=== PATIENT | female | born 1980 | race Caucasian/White ===

== ENCOUNTER 2016-08-24 17:06 | Emergency (ER) | payer MEDICAID ==
[2016-08-24] MEDS ORDERED: ONDANSETRON 4 MG TAB.RAPDIS PO ONE (17:35)
--- NOTE | 2016-08-24 17:38 | ER Document Report ---
ED Medical Screen (RME) - General Chief Complaint: Nausea/Vomiting/Diarrhea Stated Complaint: VOMITING AND DIARRHEA Mode of Arrival: Ambulatory Information source: Patient Notes: Patient presents emergency department with vomiting diarrhea all day. Patient reports symptoms started this morning. Reports all her kids are sick at home. No flu vaccine this year I have greeted and performed a rapid initial assessment of this patient. A comprehensive ED assessment and evaluation of the patient, analysis of test results and completion of the medical decision making process will be conducted by additional ED providers. TRAVEL OUTSIDE OF THE [place] IN LAST 30 DAYS: No - Related Data Allergies/Adverse Reactions: Sulfa (Sulfonamide Antibiotics) Allergy (Mild, Verified 01/14/16 21:07) rash doxycycline Allergy (Verified 01/14/16 21:07) ketorolac tromethamine [From Toradol] Adverse Reaction (Mild, Verified 01/14/16 21:07) spiders Allergy (Severe, Uncoded 01/14/16 21:07) Seizures latex Allergy (Uncoded 01/14/16 21:07) Past Medical History - Social History Family history: Reviewed & Not Pertinent Pulmonary Medical History: Reports: Hx Asthma, Hx Bronchitis - Bronchitis with bronchospasm, Hx COPD Neurological Medical History: Reports: Hx Migraine Malignancy Medical History: Reports: Hx Skin Cancer Musculoskeltal Medical History: Reports Hx Musculoskeletal Deformity, Reports Hx Musculoskeletal Trauma Skin Medical History: Reports Hx Psoriasis Psychiatric Medical History: Reports: Hx Anxiety, Hx Depression Traumatic Medical History: Reports: Hx Fractures - hand Past Surgical History: Reports: Hx Section - x2, Hx Orthopedic Surgery - lt knee x 4, Hx Tubal Ligation - Immunizations Immunizations up to date: Yes Hx Diphtheria, Pertussis, Tetanus Vaccination: Yes - november 2014 Physical Exam - Vital signs Vitals: Temp Pulse Resp BP Pulse Ox 98.3 F 106 H 16 136/72 H 97 08/24/16 17:10 08/24/16 17:10 08/24/16 17:10 08/24/16 17:10 08/24/16 17:10 Course - Vital Signs Vital signs: Temp Pulse Resp BP Pulse Ox 98.3 F 106 H 16 136/72 H 97 08/24/16 17:10 08/24/16 17:10 08/24/16 17:10 08/24/16 17:10 08/24/16 17:10
[2016-08-24 20:19] LABS: ABSOLUTE EOSINOPHILS # (AUTO) 0.2 10^3/uL (0.0-0.6); ABSOLUTE LYMPHOCYTES (AUTO) 1.1 10^3/uL (0.5-4.7); ABSOLUTE MONOCYTES (AUTO) 0.5 10^3/uL (0.1-1.4); ABSOLUTE NEUT (AUTO) 10.8 10^3/uL (1.7-8.2); BASOPHILS % (AUTO) 0.3 % (0-2); EOSINOPHILS % (AUTO) 1.7 % (0-6); HEMATOCRIT 49.3 % (36.0-47.0); HEMOGLOBIN 16.9 g/dL (12.0-15.5); HGB HCT DIFFERENCE 1.4; LYMPHOCYTES % (AUTO) 8.4 % (13-45); MEAN CORPUSCULAR HEMOGLOBIN 30.3 pg (27.0-33.4); MEAN CORPUSCULAR HGB CONC 34.3 g/dL (32.0-36.0); MEAN CORPUSCULAR VOLUME 88 fl (80-97); RED BLOOD COUNT 5.58 10^6/uL (3.72-5.28); RED CELL DISTRIBUTION WIDTH 15.3 % (11.5-14.0); SEGMENTED NEUTROPHILS % (AUTO) 85.6 % (42-78); WHITE BLOOD COUNT 12.6 10^3/uL (4.0-10.5)
[2016-08-24 20:25] LABS: APPEARANCE,URINE CLOUDY; BILIRUBIN,URINE NEGATIVE (NEGATIVE); GLUCOSE, URINE NEGATIVE (NEGATIVE); KETONES,URINE NEGATIVE (NEGATIVE); LEUKOCYTE ESTERASE,URINE TRACE (NEGATIVE); NITRITE,URINE NEGATIVE (NEGATIVE); PROTEIN,URINE 100 mg/dL (NEGATIVE); URINE SPECIFIC GRAVITY 1.021; UROBILINOGEN,URINE NEGATIVE mg/dL (<2.0)
[2016-08-24 20:50] LABS: ALANINE AMINOTRANSFERASE 45 U/L (9-52); ALBUMIN 4.7 g/dL (3.5-5.0); ALKALINE PHOSPHATASE 85 U/L (38-126); ANION GAP 13 (5-19); ASPARTATE AMINO TRANSFERASE 30 U/L (14-36); BILIRUBIN,DIRECT 0.3 mg/dL (0.0-0.4); BILIRUBIN,TOTAL 0.9 mg/dL (0.2-1.3); BLOOD UREA NITROGEN 12 mg/dL (7-20); CALCIUM 9.9 mg/dL (8.4-10.2); CARBON DIOXIDE 25 mmol/L (22-30); CHLORIDE 104 mmol/L (98-107); CREATININE RESULT 0.77 mg/dL (0.52-1.25); GLUCOSE 93 mg/dL (75-110); POTASSIUM 4.5 mmol/L (3.6-5.0); SODIUM 141.7 mmol/L (137-145); TOTAL PROTEIN 7.9 g/dL (6.3-8.2)
[2016-08-24] MEDS ORDERED: FAMOTIDINE INJ/PF 20 MG/2 ML SDV IV ONE (21:16)
[2016-08-24] MEDS ORDERED: DIPHENHYDRAMINE HCL 50 MG/ML VIAL IV ONE (21:16)
--- NOTE | 2016-08-24 21:18 | ER Document Report ---
ED GI/ - General Time seen by provider: 21:12 Mode of Arrival: Ambulatory Information source: Patient TRAVEL OUTSIDE OF THE [place] IN LAST 30 DAYS: No - HPI Patient complains to provider of: Abdominal pain, Diarrhea, Vomiting Onset: This morning - see HPI note LMP: 08/24/16 Associated symptoms: Diarrhea, Nausea, Vomiting. denies: Fever <RADHA COHEN - Last Filed: 08/24/16 21:45> <LEANDRO ARGUELLES - Last Filed: 08/24/16 23:59> - General Chief Complaint: Nausea/Vomiting Stated Complaint: VOMITING AND DIARRHEA Notes: Patient is a 35 year old female presenting to the ED for nausea, vomiting, and diarrhea. Patient's symptoms started this morning. Patient has been around sick family members and sick children with the same symptoms. Patient also complains of some epigastric cramping. Patient denies any fevers. Patient has a history of asthma, depression and anxiety. Patient did not receive a flu vaccination this season. (RADHA COHEN) - Related Data Allergies/Adverse Reactions: Sulfa (Sulfonamide Antibiotics) Allergy (Mild, Verified 01/14/16 21:07) rash doxycycline Allergy (Verified 01/14/16 21:07) ketorolac tromethamine [From Toradol] Adverse Reaction (Mild, Verified 01/14/16 21:07) spiders Allergy (Severe, Uncoded 01/14/16 21:07) Seizures latex Allergy (Uncoded 01/14/16 21:07) Past Medical History - General Information source: Patient - Social History Smoking Status: Unknown if Ever Smoked Family History: Reviewed & Not Pertinent, CVA, DM Patient has suicidal ideation: No Patient has homicidal ideation: No Pulmonary Medical History: Reports: Hx Asthma, Hx Bronchitis - Bronchitis with bronchospasm, Hx COPD Neurological Medical History: Reports: Hx Migraine Malignancy Medical History: Reports: Hx Skin Cancer Musculoskeltal Medical History: Reports Hx Musculoskeletal Deformity, Reports Hx Musculoskeletal Trauma Skin Medical History: Reports Hx Psoriasis Psychiatric Medical History: Reports: Hx Anxiety, Hx Depression Traumatic Medical History: Reports: Hx Fractures - hand Past Surgical History: Reports: Hx Section - x2, Hx Orthopedic Surgery - lt knee x 4, Hx Tubal Ligation - Immunizations Immunizations up to date: Yes Hx Diphtheria, Pertussis, Tetanus Vaccination: Yes - november 2014 History of Influenza Vaccine for 02/2016 - 07/2016 Season: No <RADHA COHEN - Last Filed: 08/24/16 21:45> Review of Systems - Review of Systems Constitutional: No symptoms reported. denies: Fever EENT: No symptoms reported Cardiovascular: No symptoms reported Respiratory: No symptoms reported Gastrointestinal: See HPI, Abdominal pain, Diarrhea, Nausea, Vomiting Genitourinary: No symptoms reported Female Genitourinary: No symptoms reported Musculoskeletal: No symptoms reported Skin: No symptoms reported Hematologic/Lymphatic: No symptoms reported Neurological/Psychological: No symptoms reported -: Yes All other systems reviewed and negative <RADHA COHEN - Last Filed: 08/24/16 21:45> Physical Exam - Vital signs Interpretation: Normal - General General appearance: Appears well, Alert In distress: Mild - HEENT Head: Normocephalic, Atraumatic Eyes: Normal Pupils: PERRL Mucous membranes: Moist - Respiratory Respiratory status: No respiratory distress Chest status: Nontender Breath sounds: Normal Chest palpation: Normal - Cardiovascular Rhythm: Regular Heart sounds: Normal auscultation Murmur: No - Abdominal Inspection: Normal Distension: No distension Bowel sounds: Normal Tenderness: Nontender Organomegaly: No organomegaly - Back Back: Normal, Nontender - Extremities General upper extremity: Normal inspection, Normal ROM, Normal strength General lower extremity: Normal inspection, Normal ROM, Normal strength - Neurological Neuro grossly intact: Yes Cognition: Normal Orientation: AAOx4 [place] Coma Scale Eye Opening: Spontaneous [place] Coma Scale Verbal: Oriented [place] Coma Scale Motor: Obeys Commands [place] Coma Scale Total: 15 Speech: Normal Sensory: Normal - Psychological Associated symptoms: Normal affect, Normal mood - Skin Skin Temperature: Warm Skin Moisture: Dry <RADHA COHEN - Last Filed: 08/24/16 21:45> <LEANDRO ARGUELLES - Last Filed: 08/24/16 23:59> - Vital signs Vitals: Temp Pulse Resp BP Pulse Ox 98.3 F 106 H 16 136/72 H 97 08/24/16 17:10 08/24/16 17:10 08/24/16 17:10 08/24/16 17:10 08/24/16 17:10 Course - Laboratory Result Diagrams: 08/24/16 20:00 08/24/16 20:00 <RADHA COHEN - Last Filed: 08/24/16 21:45> - Laboratory Result Diagrams: 08/24/16 20:00 08/24/16 20:00 <LEANDRO ARGUELLES - Last Filed: 08/24/16 23:59> - Re-evaluation Re-evalutation: 08/24/16 23:57 The patient is now finishing her second liter of normal saline. There is been no diarrhea since I first saw her almost 3 hours ago. She'll be discharged home with anti-medic medication and to drink small sips cool clear fluids. The urine was quite contaminated with epithelial cells, and the blood is due to the patient being on her period. (LEANDRO ARGUELLES) - Vital Signs Vital signs: Temp Pulse Resp BP Pulse Ox 98.3 F 106 H 16 136/72 H 97 08/24/16 17:10 08/24/16 17:10 08/24/16 17:10 08/24/16 17:10 08/24/16 17:10 - Laboratory Laboratory results interpreted by me: 08/24/16 08/24/16 20:00 20:00 WBC 12.6 H RBC 5.58 H Hgb 16.9 H Hct 49.3 H RDW 15.3 H Seg Neutrophils % 85.6 H Lymphocytes % 8.4 L Absolute Neutrophils 10.8 H Urine Protein 100 H Urine Blood LARGE H Ur Leukocyte Esterase TRACE H Discharge <RADHA COHEN - Last Filed: 08/24/16 21:45> <LEANDRO ARGUELLES - Last Filed: 08/24/16 23:59> - Discharge Clinical Impression: Nausea, vomiting and diarrhea Condition: Stable Disposition: HOME, SELF-CARE Additional Instructions: Gastroenteritis: You most likely have gastroenteritis. This is an irritation of the stomach and intestinal tract. It's usually caused by a virus, but can also be caused by bacteria, toxins that cause food poisoning, or excessive alcohol intake. Symptoms may include fever, painful abdominal cramps, nausea, vomiting , and diarrhea. Start with small amounts (two to six ounces) of clear liquids (soft drinks , herb teas, broth, etc). Try to take fluids frequently even if you are vomiting, to prevent dehydration. When liquids are being consumed successfully , advance to small amounts of bland food (mashed potato, toast) for 6 - 12 hours. Gastroenteritis rarely requires medication. It goes away by itself. Use good handwashing so you don't spread germs. Wash underwear in very hot water. If symptoms are severe, talk to the doctor. Call your physician if blood appears in your vomitus or stool, if vomiting lasts longer than 24 hours, if the abdominal pain worsens or becomes localized to one area, or if you develop high fever. //////////////////////////////////////////////////////////////////////////////// ///////////////////////////////////////////////////////////////////////////// Take medications as dispensed and prescribed for nausea if needed. Drink small sips of cool clear liquids. Follow-up with your doctor if not improving. RETURN TO THE EMERGENCY ROOM IF ANY NEW OR WORSENING SYMPTOMS. Prescriptions: Ondansetron HCl [Zofran 4 mg Tablet] 1 - 2 tab PO Q4H PRN #15 tablet PRN Reason: Scribe Attestation: 08/24/16 23:59 I personally performed the services described in the documentation, reviewed and edited the documentation which was dictated to the scribe in my presence, and it accurately records my words and actions. (LEANDRO ARGUELLES) Scribe Documentation - Scribe Written by Candace:: Radha Cohen 08/24/16 21:50 acting as scribe for :: Dean <RADHA COHEN - Last Filed: 08/24/16 21:45>
[2016-08-24] MEDS: NORMAL SALINE 1000 ML 1,000 ML IV PRN ×2 (21:51→23:22)
[2016-08-24] MEDS ORDERED: ONDANSETRON HCL INJ/PF 4 MG/2 ML SDV IV ONE (23:11)
[2016-08-25] MEDS ORDERED: ONDANSETRON ODT 4 MG TAB (6 TAB/DSPK) PO PRN (00:01)
[2016-08-25 00:16] VITALS: BP 130/66
== END 2016-08-25 00:15 | disposition home or self-care (01) ==
LOC: ER 17:06
DX: R11.2 Nausea with vomiting, unspecified (principal); R19.7 Diarrhea, unspecified; R10.13 Epigastric pain; J44.9 Chronic obstructive pulmonary disease, unspecified; Z88.2 Allergy status to sulfonamides; Z88.1 Allergy status to other antibiotic agents; Z91.038 Other insect allergy status; Z91.040 Latex allergy status; Z98.51 Tubal ligation status
CPT/HCPCS: 99284; 96374; 96375; 36415; 84703; 85025; 80053; 81001; 87804; J1200; S0119; J2405; J7030; S0028

== ENCOUNTER 2016-11-06 13:12 | Emergency (ER) | payer MEDICAID ==
[2016-11-06 13:19] VITALS: BP 150/78
--- NOTE | 2016-11-06 13:44 | ER Document Report ---
ED Medical Screen (RME) - General Chief Complaint: Shortness Of Breath Stated Complaint: SHORTNESS OF BREATH Time Seen by Provider: 11/06/16 13:36 Notes: 35-year-old female patient on chronic headache pain management reports 2 week history of cough, short of breath, headache, body aches, hoarseness. She states she was diagnosed with bronchitis, sinus infection, ear infection 1 week ago, got shot of Rocephin in the office on Wednesday, was given a prescription for antibiotic she is allergic to. She did not go back to be seen and claims she has not gotten any better. She reports calling the office today and neither of her providers were in and she was told to come to the emergency room today or the office on Wednesday. I have greeted and performed a rapid initial assessment of this patient. A comprehensive ED assessment and evaluation of the patient, analysis of test results and completion of the medical decision making process will be conducted by additional ED providers. TRAVEL OUTSIDE OF THE [place] IN LAST 30 DAYS: No - Related Data Allergies/Adverse Reactions: Sulfa (Sulfonamide Antibiotics) Allergy (Mild, Verified 11/06/16 13:15) rash doxycycline Allergy (Verified 11/06/16 13:15) ketorolac tromethamine [From Toradol] Adverse Reaction (Mild, Verified 11/06/16 13:15) spiders Allergy (Severe, Uncoded 11/06/16 13:15) Seizures latex Allergy (Uncoded 11/06/16 13:15) Past Medical History - Social History Chew tobacco use (# tins/day): No Frequency of alcohol use: None Drug Abuse: None Family history: Reviewed & Not Pertinent Pulmonary Medical History: Reports: Hx Asthma, Hx Bronchitis - Bronchitis with bronchospasm, Hx COPD Neurological Medical History: Reports: Hx Migraine Renal/ Medical History: Denies: Hx Peritoneal Dialysis Malignancy Medical History: Reports: Hx Skin Cancer Musculoskeltal Medical History: Reports Hx Musculoskeletal Deformity, Reports Hx Musculoskeletal Trauma Skin Medical History: Reports Hx Psoriasis Psychiatric Medical History: Reports: Hx Anxiety, Hx Depression Traumatic Medical History: Reports: Hx Fractures - hand Past Surgical History: Reports: Hx Section - x2, Hx Orthopedic Surgery - lt knee x 4, Hx Tubal Ligation - Immunizations Immunizations up to date: Yes Hx Diphtheria, Pertussis, Tetanus Vaccination: Yes - november 2014 Physical Exam - Vital signs Vitals: Temp Pulse Resp BP Pulse Ox 98.2 F 108 H 20 150/78 H 97 11/06/16 13:16 11/06/16 13:16 11/06/16 13:16 11/06/16 13:16 11/06/16 13:16 Course - Vital Signs Vital signs: Temp Pulse Resp BP Pulse Ox 98.2 F 108 H 20 150/78 H 97 11/06/16 13:16 11/06/16 13:16 11/06/16 13:16 11/06/16 13:16 11/06/16 13:16
[2016-11-06] MEDS ORDERED: IBUPROFEN 800 MG TABLET PO ONE (14:21)
--- NOTE | 2016-11-06 14:27 | RADIOLOGY REPORT (SQ) ---
EXAM DESCRIPTION: CHEST PA/LAT COMPLETED DATE/TIME: 11/06/2016 2:11 pm REASON FOR STUDY: cough, SOB, hoarse COMPARISON: July 2015 EXAM PARAMETERS: NUMBER OF VIEWS: two views TECHNIQUE: Digital Frontal and Lateral radiographic views of the chest acquired. RADIATION DOSE: NA LIMITATIONS: none FINDINGS: LUNGS AND PLEURA: No opacities, masses or pneumothorax. No pleural effusion. MEDIASTINUM AND HILAR STRUCTURES: No masses or contour abnormalities. HEART AND VASCULAR STRUCTURES: Heart normal size. No evidence for failure. BONES: No acute findings. HARDWARE: None in the chest. OTHER: No other significant finding. IMPRESSION: NO SIGNIFICANT RADIOGRAPHIC FINDING IN THE CHEST. TECHNICAL DOCUMENTATION: JOB ID: [id number] [employer]- All Rights Reserved
--- NOTE | 2016-11-06 14:39 | ER Document Report ---
ED Respiratory Problem - General Chief Complaint: Shortness Of Breath Stated Complaint: SHORTNESS OF BREATH Time Seen by Provider: 11/06/16 13:36 Mode of Arrival: Ambulatory Information source: Patient Notes: 35-year-old female presents to ED for chronic headache. History of a cough for 2 weeks. She states she has been short of breath but body aches and hoarseness. She states she was diagnosed with bronchitis, sinus infection and ear infection a week ago. States she had a shot of Rocephin in the office on Wednesday and was given a prescription for antibiotics that she was allergic to so she did not take them and did not go back to the office. States she has not gotten any better. States she called the office today and neither of her providers or and so she was told to come to the emergency room. TRAVEL OUTSIDE OF THE [place] IN LAST 30 DAYS: No - HPI Onset: Last week Duration: Continuous Initiating Event: URI Quality of pain: Achy Severity: Moderate Pain Level: 4 Context: Smoker Short of Breath: Mild Cough: Nonproductive Sputum amount: None Associated symptoms: Congestion, Cough, PND, Runny nose, Sinus pain/pressure, Short of breath, Sore Throat. denies: Fever Similar symptoms previously: Yes Recently seen / treated by doctor: Yes - Related Data Allergies/Adverse Reactions: Sulfa (Sulfonamide Antibiotics) Allergy (Mild, Verified 11/06/16 13:15) rash doxycycline Allergy (Verified 11/06/16 13:15) ketorolac tromethamine [From Toradol] Adverse Reaction (Mild, Verified 11/06/16 13:15) spiders Allergy (Severe, Uncoded 11/06/16 13:15) Seizures latex Allergy (Uncoded 11/06/16 13:15) Past Medical History - General Information source: Patient - Social History Smoking Status: Current Every Day Smoker Cigarette use (# per day): Yes - ppd Chew tobacco use (# tins/day): No Smoking Education Provided: Yes - Less than 2 minutes Frequency of alcohol use: None Drug Abuse: None Lives with: Family Family History: Arthritis, CAD, COPD, CVA, DM, Hyperlipidemia, Hypertension, Malignancy. denies: Thyroid Disfunction Patient has suicidal ideation: No Patient has homicidal ideation: No - Past Medical History Cardiac Medical History: Reports: None Pulmonary Medical History: Reports: Hx Asthma, Hx Bronchitis - Bronchitis with bronchospasm, Hx COPD EENT Medical History: Reports: None Neurological Medical History: Reports: Hx Migraine Endocrine Medical History: Reports: None Renal/ Medical History: Reports: None Malignancy Medical History: Reports: Hx Skin Cancer GI Medical History: Reports: None Musculoskeltal Medical History: Reports Hx Musculoskeletal Deformity, Reports Hx Musculoskeletal Trauma Skin Medical History: Reports Hx Psoriasis Psychiatric Medical History: Reports: Hx Anxiety, Hx Depression Traumatic Medical History: Reports: Hx Fractures - hand Infectious Medical History: Reports: None Past Surgical History: Reports: Hx Section - x2, Hx Orthopedic Surgery - lt knee x 4, Hx Tubal Ligation - Immunizations Immunizations up to date: Yes Hx Diphtheria, Pertussis, Tetanus Vaccination: Yes - november 2014 Review of Systems - Review of Systems Constitutional: Recent illness EENT: Nose discharge, Sinus pressure, Sinus discharge, Throat pain Cardiovascular: No symptoms reported Respiratory: Cough, Short of breath Gastrointestinal: No symptoms reported Genitourinary: No symptoms reported Female Genitourinary: No symptoms reported Musculoskeletal: No symptoms reported Skin: No symptoms reported Hematologic/Lymphatic: No symptoms reported Neurological/Psychological: Headaches -: Yes All other systems reviewed and negative Physical Exam - Vital signs Vitals: Temp Pulse Resp BP Pulse Ox 98.2 F 108 H 20 150/78 H 97 11/06/16 13:16 11/06/16 13:16 11/06/16 13:16 11/06/16 13:16 11/06/16 13:16 Interpretation: Normal - General General appearance: Appears well, Alert - HEENT Head: Normocephalic, Atraumatic Eyes: Normal Pupils: PERRL Ears: Normal External canal: Normal Tympanic membrane: Normal Sinus: Normal Nasal: Purulent discharge, Swelling Mouth/Lips: Normal Pharynx: Post nasal drainage Neck: Normal - Respiratory Respiratory status: No respiratory distress. No: Respiratory distress Chest status: Nontender. No: Tender Breath sounds: Nonproductive cough. No: Rales, Rhonchi, Stridor, Wheezing Chest palpation: Normal - Cardiovascular Rhythm: Regular Heart sounds: Normal auscultation Murmur: No - Abdominal Inspection: Normal Distension: No distension Bowel sounds: Normal Tenderness: Nontender Organomegaly: No organomegaly - Back Back: Normal, Nontender - Extremities General upper extremity: Normal inspection, Nontender, Normal color, Normal ROM , Normal temperature General lower extremity: Normal inspection, Nontender, Normal color, Normal ROM , Normal temperature, Normal weight bearing. No: Aldo's sign - Neurological Neuro grossly intact: Yes Cognition: Normal Orientation: AAOx4 [place] Coma Scale Eye Opening: Spontaneous [place] Coma Scale Verbal: Oriented [place] Coma Scale Motor: Obeys Commands [place] Coma Scale Total: 15 Speech: Normal Motor strength normal: LUE, RUE, LLE, RLE Sensory: Normal - Psychological Associated symptoms: Normal affect, Normal mood - Skin Skin Temperature: Warm Skin Moisture: Dry Skin Color: Normal Course - Re-evaluation Re-evalutation: 11/06/16 22:16 Discussed x-ray with patient and discharged home to follow-up with her primary doctor. Patient has taken her medications except for the antibiotic that she refused to get. She does not have a bacterial infection she has a upper respiratory infection and does not need antibiotics. - Vital Signs Vital signs: Temp Pulse Resp BP Pulse Ox 98.2 F 108 H 20 150/78 H 97 11/06/16 13:16 11/06/16 13:16 11/06/16 13:16 11/06/16 13:16 11/06/16 13:16 - Diagnostic Test Radiology reviewed: Image reviewed, Reports reviewed Discharge - Discharge Clinical Impression: URI (upper respiratory infection) Qualifiers: URI type: unspecified URI Qualified Code(s): J06.9 - Acute upper respiratory infection, unspecified Condition: Stable Disposition: HOME, SELF-CARE Instructions: Family Physicians / Practices Additional Instructions: UPPER RESPIRATORY ILLNESS: You have a viral infection of the respiratory passages -- a "cold." This common infection causes nasal congestion, drainage, and often sore throat and cough. It is highly contagious. The disease usually lasts about 10 to 14 days. There is no "cure" for the viral infection -- it must run its course. If there is a complication, such as bacterial infection in the nose, sinuses, middle ear, or bronchial tubes, antibiotics may be required. The antibiotics won't affect the virus. Drink plenty of fluids. A humidifier may help. An expectorant medication or decongestant may make you more comfortable. Use acetaminophen or ibuprofen for fever or aches. See the doctor if fever persists over two days, if there is any significant worsening of your symptoms, or if you simply fail to improve as expected. DECONGESTANT MEDICATION: A decongestant medicine has been prescribed. Often this medicine is combined in the same tablet with an antihistamine or expectorant. This type of medicine is helpful in treating a bad cold or sinus condition, as well as in treatment of the nasal congestion of hay fever. It is not of much benefit for lung infections. Decongestant medicines are related to stimulants. They can cause an increase in blood pressure and heart rate. Persons with heart disease and high blood pressure should not take decongestants without discussing this with the physician. If you develop palpitations, chest pain, headache, or tremors, stop the medicine and consult your physician. COUGH-SUPPRESSANT & EXPECTORANT MEDICATION: You are to use a cough medication as needed for relief of symptoms. This medicine is a combination of an expectorant (to make the mucous thinner and more easily "coughed up") and a cough suppressant (to reduce the frequency of coughing). The cough-suppressant medicine is related to narcotics. You may experience mild nausea and sleepiness. Some patients who are very sensitive to narcotics may have stomach pain from this medicine. Taking the medicine with food reduces these side effects. Do not drive or work with machinery until you know how this medicine affects you. The expectorant should have no side effects. Iodine-containing expectorants (such as organidin) should not be taken by persons with active thyroid disease unless approved by your doctor. Call the doctor if you develop shortness of breath, hives, rash, itching, lightheadedness, or severe nausea and vomiting. USE OF ACETAMINOPHEN (Tylenol): Acetaminophen may be taken for pain relief or fever control. It's much safer than aspirin, offering a wider range of "safe" dosages. It is safe during . Some brand names are Tylenol, Panadol, Datril, Anacin 3, Tempra, and Liquiprin. Acetaminophen can be repeated every four hours. The following are maximum recommended dosages: >89 pounds or adults 650 mg to 900 mg Acetaminophen can be repeated every four hours. Maximum dose not to exceed 4000 mg a day. SMOKING: If you smoke, you should stop smoking. The tar and chemicals in cigarette smoke are harmful. Smoking has been shown to cause: emphysema chronic bronchitis lung cancer mouth and throat cancer stomach and pancreas cancer premature aging defects In addition, smoking increases ear and lung infections in children of smokers. FOLLOW-UP CARE: If you have been referred to a physician for follow-up care, call the physician s office for an appointment as you were instructed or within the next two days. If you experience worsening or a significant change in your symptoms, notify the physician immediately or return to the Emergency Department at any time for re-evaluation. Forms: Elevated Blood Pressure, Smoking Cessation Education, Return to Work
== END 2016-11-06 15:29 | disposition home or self-care (01) ==
LOC: ER 13:12
DX: J06.9 Acute upper respiratory infection, unspecified (principal); R06.02 Shortness of breath; R51 Headache; R05 Cough; R52 Pain, unspecified; R49.0 Dysphonia; F17.210 Nicotine dependence, cigarettes, uncomplicated
CPT/HCPCS: 99283; 71020; J3490

== ENCOUNTER 2017-01-16 18:40 | Emergency (ER) | payer MEDICAID ==
[2017-01-16 18:44] VITALS: BP 132/92
[2017-01-16] MEDS ORDERED: IBUPROFEN 800 MG TABLET PO ONE (19:35)
--- NOTE | 2017-01-16 19:40 | ER Document Report ---
ED Fall - General Chief Complaint: Fall Stated Complaint: FALL/BACK PAIN Time Seen by Provider: 01/16/17 19:27 Mode of Arrival: Ambulatory Information source: Patient Notes: 36-year-old female presents to ED for complaint of fall. She states she was walking out of her door when she stepped on the wet ramp. She states the landlord refused to fix the ramp. States she has pain in her left foot and ankle. She also had pain in her left arm back and head but she states they are not as bad as her left foot and ankle. Patient speaking in clear sentences no obvious edema or bruising to any of the areas she is complaining of pain in. TRAVEL OUTSIDE OF THE [place] IN LAST 30 DAYS: No - HPI Occurred: Just prior to arrival Where: Home, Outdoors Context: Slipped Associated symptoms: None Location of injury/pain: Ankle, Back, Foot, Head, Upper extremity Quality of pain: Sharp, Throbbing Severity: Moderate Pain Level: 4 - Related data Allergies/Adverse Reactions: Sulfa (Sulfonamide Antibiotics) Allergy (Mild, Verified 11/06/16 13:15) rash doxycycline Allergy (Verified 11/06/16 13:15) ketorolac tromethamine [From Toradol] Adverse Reaction (Mild, Verified 11/06/16 13:15) spiders Allergy (Severe, Uncoded 11/06/16 13:15) Seizures latex Allergy (Uncoded 11/06/16 13:15) Past Medical History - General Information source: Patient - Social History Smoking Status: Current Every Day Smoker Cigarette use (# per day): Yes - ppd Chew tobacco use (# tins/day): No Smoking Education Provided: Yes - less than 2 min Frequency of alcohol use: None Drug Abuse: None Lives with: Family Family History: Arthritis, CAD, COPD, CVA, DM, Hyperlipidemia, Hypertension, Malignancy. denies: Thyroid Disfunction - Past Medical History Cardiac Medical History: Reports: None Pulmonary Medical History: Reports: Hx Asthma, Hx Bronchitis - Bronchitis with bronchospasm, Hx COPD EENT Medical History: Reports: None Neurological Medical History: Reports: Hx Migraine Endocrine Medical History: Reports: None Renal/ Medical History: Reports: None Malignancy Medical History: Reports: Hx Skin Cancer GI Medical History: Reports: None Musculoskeltal Medical History: Reports Hx Musculoskeletal Deformity, Reports Hx Musculoskeletal Trauma Skin Medical History: Reports Hx Psoriasis Psychiatric Medical History: Reports: Hx Anxiety, Hx Depression Traumatic Medical History: Reports: Hx Fractures - hand Infectious Medical History: Reports: None Past Surgical History: Reports: Hx Section - x2, Hx Orthopedic Surgery - lt knee x 4, Hx Tubal Ligation - Immunizations Immunizations up to date: Yes Hx Diphtheria, Pertussis, Tetanus Vaccination: Yes - november 2014 Review of Systems - Review of Systems Constitutional: No symptoms reported EENT: No symptoms reported Cardiovascular: No symptoms reported Respiratory: No symptoms reported Gastrointestinal: No symptoms reported Genitourinary: No symptoms reported Female Genitourinary: No symptoms reported Musculoskeletal: Back pain, Other - Left ankle, foot pain, left arm pain, back pain and head pain Skin: No symptoms reported. denies: Change in color Hematologic/Lymphatic: No symptoms reported Neurological/Psychological: No symptoms reported -: Yes All other systems reviewed and negative Physical Exam - Vital signs Vitals: Temp Pulse Resp BP Pulse Ox 98.5 F 73 18 132/92 H 97 01/16/17 18:41 01/16/17 18:41 01/16/17 18:41 01/16/17 18:41 01/16/17 18:41 Interpretation: Normal - General General appearance: Appears well, Alert - HEENT Head: Normocephalic, Atraumatic Eyes: Normal Pupils: PERRL - Respiratory Respiratory status: No respiratory distress Chest status: Nontender Breath sounds: Normal Chest palpation: Normal - Cardiovascular Rhythm: Regular Heart sounds: Normal auscultation Murmur: No - Abdominal Inspection: Normal Distension: No distension Bowel sounds: Normal Tenderness: Nontender Organomegaly: No organomegaly - Back Back: Normal, Nontender - Extremities General upper extremity: Normal inspection, Nontender, Normal color, Normal ROM , Normal temperature General lower extremity: Normal inspection, Normal color, Normal ROM, Normal temperature, Normal weight bearing. No: Aldo's sign Ankle: Tender Foot: Tender - Neurological Neuro grossly intact: Yes Cognition: Normal Orientation: AAOx4 [place] Coma Scale Eye Opening: Spontaneous Lisandra Coma Scale Verbal: Oriented Lisandra Coma Scale Motor: Obeys Commands [place] Coma Scale Total: 15 Speech: Normal Motor strength normal: LUE, RUE, LLE, RLE Sensory: Normal - Psychological Associated symptoms: Normal affect, Normal mood - Skin Skin Temperature: Warm Skin Moisture: Dry Skin Color: Normal Course - Re-evaluation Re-evalutation: 01/16/17 20:33 X-rays discussed with patient. Written reports given to patient to follow-up with her primary doctor. There are no broken bones no acute radiological changes. Patient to use ibuprofen for her pain elevated and ice the injuries. - Vital Signs Vital signs: Temp Pulse Resp BP Pulse Ox 98.5 F 73 18 132/92 H 97 01/16/17 18:41 01/16/17 18:41 01/16/17 18:41 01/16/17 18:41 01/16/17 18:41 - Diagnostic Test Radiology reviewed: Image reviewed, Reports reviewed Discharge - Discharge Clinical Impression: Multiple contusions Fall Qualifiers: Encounter type: initial encounter Qualified Code(s): W19.XXXA - Unspecified fall, initial encounter Abrasion of left arm Qualifiers: Encounter type: initial encounter Qualified Code(s): S40.812A - Abrasion of left upper arm, initial encounter Left ankle pain Qualifiers: Chronicity: acute Qualified Code(s): M25.572 - Pain in left ankle and joints of left foot Condition: Stable Disposition: HOME, SELF-CARE Additional Instructions: CONTUSION: Your injury has resulted in a contusion -- a crushing of the deep tissues. No injury to important structures was detected during the physician's exam. Contusions vary in the amount of pain they cause, and in the length of time required for healing. Typically, the area will become bruised, and will remain painful to touch for two or three weeks. However, most patients are back to working and playing within a few days. After the initial period of rest and cold-packs, your symptoms (together with the doctor's recommendations) will determine how rapidly you can get back to full activity. Usually this means "do what feels okay, but don't do things that hurt." If re-examination was recommended, it's important to follow up as instructed. Call the doctor or return any time if pain increases, if swelling becomes severe, if you develop numbness or weakness in an injured extremity, or if any other alarming symptoms occur. ABRASIONS: An abrasion is a scraping injury of the skin. Some scarring may result. The seriousness of an abrasion is not always obvious at first. Hidden tissue damage may be present and infection may occur despite proper care. Complete healing may take from ten days to as long as a month. The healing time depends on the depth of the abrasion, and on the amount of crushing of underlying tissues from the injury. Keep the wound and dressing clean. Do not shower or bathe the area until okayed by the doctor. If the dressing gets wet, remove it and blot the wound dry, then reapply a clean dressing. Dressings should be changed every day. Sunscreen should be used for six months after the skin is healed. If any signs of infection occur (swelling, redness, increasing tenderness, red streaks, profuse purulent drainage from the abrasion, tender lumps in the armpit or groin above the abrasion, or fever), see the doctor immediately. USE OF TYLENOL (ACETAMINOPHEN): Acetaminophen may be taken for pain relief or fever control. It's much safer than aspirin, offering a wider range of "safe" dosages. It is safe during . Some brand names are Tylenol, Panadol, Datril, Anacin 3, Tempra, and Liquiprin. Acetaminophen can be repeated every four hours. The following are maximum recommended dosages: WEIGHT Dose Drops Elixir Chewable( 80mg) (LBS.) drprs=droppers tsp=teaspoon 6 40 mg 0.4 ml (1/2) 6-11 80 mg 0.8 ml (full) tsp 1 tab 12-16 120 mg 1 1/2 drprs 3/4 tsp 1 1/2 tabs 17-23 160 mg 2 drprs 1 tsp 2 tabs 24-30 240 mg 3 drprs 1 1/2 tsp 3 tabs 30-35 320 mg 2 tsp 4 tabs 36-41 360 mg 2 1/4 tsp 4 1/2 tabs 42-47 400 mg 2 1/2 tsp 5 tabs 48-53 480 mg 3 tsp 6 tabs 54-59 520 mg 3 1/4 tsp 6 1/2 tabs 60-64 560 mg 3 1/2 tsp 7 tabs 65-70 600 mg 3 3/4 tsp 7 1/2 tabs 71-76 640 mg 4 tsp 8 tabs 77-82 720 mg 4 1/2 tsp 9 tabs 83-88 800 mg 5 tsp 10 tabs >89 pounds or adults 650 mg to 900 mg Acetaminophen can be repeated every four hours. Maximum dose not to exceed 4000 mg a day. These maximum recommended dosages are slightly higher than the dosages written on the product container, but these dosages are very safe and below the toxic dosage for acetaminophen. TETANUS IMMUNIZATION GIVEN: You have been given an immunization against tetanus. Please record this in your records. In general, a booster is needed only once every 10 years. The tetanus shot protects against tetanus or "lockjaw," which is a complication of certain wound infections (the tetanus shot cannot protect against the actual infection). The immunization site may become warm and red due to local reaction. If this occurs, apply warm compresses and take aspirin or ibuprofen to reduce inflammation and discomfort. Return for evaluation if the reaction becomes severe. ICE PACKS: Apply ice packs frequently against the painful area. Many different schedules are recommended, such as "20 minutes on, 20 minutes off" or "one hour ice, two hours rest." If you need to work, you may need to go longer between ice treatments. You should plan to have the area ice packed AT LEAST one fourth of the time. The ice should be applied over the wrap, tape, or splint, or over a layer of cloth -- not directly against the skin. Some ice bags have a built-in cloth and can be put directly on the skin. WARM PACKS: After approximately two days, apply gentle heat (such as a heating pad or hot water bottle) for about 20 to 30 minutes about every two hours -- at least four times daily. Warmth and elevation will help you make a more rapid recovery , and will ease the pain considerably. Do not use HOT heat, and never apply heat for longer than 30 minutes. The continuous heat can invisibly damage skin and muscles -- even when no burn is seen on the surface. Damaged muscles can make you MORE sore. FOLLOW-UP CARE: If you have been referred to a physician for follow-up care, call the physician s office for an appointment as you were instructed or within the next two days. If you experience worsening or a significant change in your symptoms, notify the physician immediately or return to the Emergency Department at any time for re-evaluation. Prescriptions: Ibuprofen 600 mg PO Q6HP PRN #20 tablet PRN Reason: Forms: Elevated Blood Pressure, Smoking Cessation Education Referrals: SHAYNE CHÁVEZ MD [Primary Care Provider] - Follow up as needed
[2017-01-16] MEDS ORDERED: DIPH/PERTUSS(ACELL)/TETANUS VAC/PF 0.5 ML SYR (>=10YO) IM ONE (20:17)
--- NOTE | 2017-01-16 20:17 | RADIOLOGY REPORT (SQ) ---
EXAM DESCRIPTION: FOOT LEFT COMPLETE COMPLETED DATE/TIME: 01/16/2017 8:06 pm REASON FOR STUDY: pain and injury COMPARISON: None. NUMBER OF VIEWS: Three views. TECHNIQUE: AP, lateral and oblique radiographic images acquired of the left foot. LIMITATIONS: None. FINDINGS: MINERALIZATION: Normal. BONES: No acute fracture or dislocation. No worrisome bone lesions. JOINTS: Mild bony spurring at the 1st and 2nd tarsometatarsal joints. SOFT TISSUES: No soft tissue swelling. No foreign body. OTHER: No other significant finding. IMPRESSION: NEGATIVE STUDY OF THE LEFT FOOT. NO RADIOGRAPHIC EVIDENCE OF ACUTE INJURY. TECHNICAL DOCUMENTATION: JOB ID: [id number] [employer]- All Rights Reserved
--- NOTE | 2017-01-16 20:18 | RADIOLOGY REPORT (SQ) ---
EXAM DESCRIPTION: ANKLE LEFT COMPLETE COMPLETED DATE/TIME: 01/16/2017 8:06 pm REASON FOR STUDY: pain and injury COMPARISON: Left foot films same date NUMBER OF VIEWS: Three views. TECHNIQUE: AP, lateral, and oblique radiographic images acquired of the left ankle. LIMITATIONS: None. FINDINGS: MINERALIZATION: Normal. BONES: No acute fracture or dislocation. No worrisome bone lesions. JOINTS: No effusions. SOFT TISSUES: No soft tissue swelling. No foreign body. OTHER: No other significant finding. IMPRESSION: NEGATIVE STUDY OF THE LEFT ANKLE. NO RADIOGRAPHIC EVIDENCE OF ACUTE INJURY. TECHNICAL DOCUMENTATION: JOB ID: [id number] [email or web address]- All Rights Reserved
== END 2017-01-16 20:45 | disposition home or self-care (01) ==
LOC: ER 18:40
DX: S40.812A Abrasion of left upper arm, initial encounter (principal); W19.XXXA Unspecified fall, initial encounter; F17.210 Nicotine dependence, cigarettes, uncomplicated
CPT/HCPCS: 99283; 90471; 73610; 73630; 90715; J3490

== ENCOUNTER → 2017-02-27 | Outpatient (CLI) | payer MEDICAID ==
--- NOTE | 2017-02-27 08:16 | RADIOLOGY REPORT (SQ) ---
EXAM DESCRIPTION: CT HEAD WITHOUT COMPLETED DATE/TIME: 02/27/2017 8:01 am REASON FOR STUDY: CLOSED HEAD INJURY S09.90XA UNSPECIFIED INJURY OF HEAD, INITIAL ENCOUNTER COMPARISON: 10/31/2010 CT brain TECHNIQUE: Axial images acquired through the brain without intravenous contrast. Images reviewed wi th bone, brain and subdural windows. Images stored on PACS. All CT scanners at this facility use dose modulation, iterative reconstruction, and/or weight based d osing when appropriate to reduce radiation dose to as low as reasonably achievable (ALARA). [facility]: Dose Right [facility]: CareDose [facility]: Dose Right [facility]: Teradose 4D [facility]: [employer] RADIATION DOSE: Up-to-date CT equipment and radiation dose reduction techniques were employed. CTDIv ol: 64.6 mGy. DLP: 1163 mGy-cm. mGy. LIMITATIONS: None. FINDINGS: VENTRICLES: Normal size and contour. CEREBRUM: No masses. No hemorrhage. No midline shift. No evidence for acute infarction. Normal gra y/white matter differentiation. No areas of low density in the white matter. CEREBELLUM: No masses. No hemorrhage. No alteration of density. No evidence for acute infarction. EXTRAAXIAL SPACES: No fluid collections. No masses. ORBITS AND GLOBE: No intra- or extraconal masses. Normal contour of globe without masses. CALVARIUM: No fracture. PARANASAL SINUSES: No fluid or mucosal thickening. SOFT TISSUES: No mass or hematoma. OTHER: No other significant finding. IMPRESSION: NORMAL BRAIN CT WITHOUT CONTRAST. EVIDENCE OF ACUTE STROKE: NO. COMMENT: Quality ID # [id number]: Final reports with documentation of one or more dose reduction techniques (e.g., Automated exposure control, adjustment of the mA and/or kV according to patient size, use of iterative reconstruction technique) TECHNICAL DOCUMENTATION: JOB ID: [id number] [employer]- All Rights Reserved
== END ==
LOC: RAD 07:43
PROVIDERS: ATTEND Family Medicine
DX: S09.90XA Unspecified injury of head, initial encounter (principal); X58.XXXA Exposure to other specified factors, initial encounter
CPT/HCPCS: 70450

== ENCOUNTER 2017-07-21 10:09 | Emergency (ER) | payer MEDICAID ==
[2017-07-21] MEDS ORDERED: ACETAMINOPHEN 325 MG TABLET PO ONE (11:27)
[2017-07-21] MEDS ORDERED: PREDNISONE 20 MG TABLET PO ONE (11:27)
[2017-07-21] MEDS ORDERED: ONDANSETRON 4 MG TAB.RAPDIS PO ONE (11:27)
[2017-07-21] MEDS ORDERED: IPRATROPIUM/ALBUTEROL 0.5-2.5 MG/3 ML AMPUL NEB ONE (11:27)
--- NOTE | 2017-07-21 11:27 | ER Document Report ---
HPI - HPI Onset/Duration: Gradual Quality of pain: Achy Pain Level: 1 Context: Patient presents with cough for the past 3 days. Patient does report recent influenza exposure. Patient complains of nausea, sore throat. Patient denies any fever. Associated Symptoms: Nonproductive cough, Nausea, Sore throat. denies: Fever, Headache, Vomiting Exacerbated by: Denies Relieved by: Denies Similar symptoms previously: Yes Recently seen / treated by doctor: No - ROS ROS below otherwise negative: Yes Systems Reviewed and Negative: Yes All other systems reviewed and negative - CONSTITUTIONAL Constitutional: DENIES: Fever - EENT EENT: REPORTS: Sore Throat, Congestion - RESPIRATORY Respiratory: REPORTS: Coughing. DENIES: Trouble Breathing - GASTROINTESTINAL Gastrointestinal: REPORTS: Nausea. DENIES: Abdominal Pain, Patient vomiting, Diarrhea - REPRODUCTIVE Reproductive: DENIES: : - MUSCULOSKELETAL Musculoskeletal: DENIES: Back Pain, Neck Pain - DERM Skin Color: Normal Skin Problems: None Past Medical History - General Information source: Patient - Social History Smoking Status: Current Every Day Smoker Smoking Education Provided: Yes Frequency of alcohol use: None Drug Abuse: None Occupation: None Family History: Arthritis, CAD, COPD, CVA, DM, Hyperlipidemia, Hypertension, Malignancy. denies: Thyroid Disfunction Pulmonary Medical History: Reports: Hx Asthma, Hx Bronchitis - Bronchitis with bronchospasm, Hx COPD Neurological Medical History: Reports: Hx Migraine Renal/ Medical History: Denies: Hx Peritoneal Dialysis Malignancy Medical History: Reports: Hx Skin Cancer Musculoskeltal Medical History: Reports Hx Musculoskeletal Deformity, Reports Hx Musculoskeletal Trauma Skin Medical History: Reports Hx Psoriasis Psychiatric Medical History: Reports: Hx Anxiety, Hx Depression Traumatic Medical History: Reports: Hx Fractures - hand Past Surgical History: Reports: Hx Section - x2, Hx Orthopedic Surgery - lt knee x 4, Hx Tubal Ligation - Immunizations Immunizations up to date: Yes Hx Diphtheria, Pertussis, Tetanus Vaccination: Yes - november 2014 Vertical Provider Document - CONSTITUTIONAL Agree With Documented VS: Yes Exam Limitations: No Limitations General Appearance: WD/WN, No Apparent Distress - INFECTION CONTROL TRAVEL OUTSIDE OF THE [place] IN LAST 30 DAYS: No - HEENT HEENT: Atraumatic, Normocephalic, Pharyngeal Tenderness. negative: Pharyngeal Exudate, Pharyngeal Erythema, Tympanic Membrane Red, Tympanic Membrane Bulging - NECK Neck: Normal Inspection, Supple. negative: Lymphadenopathy-Left, Lymphadenopathy-Right - RESPIRATORY Respiratory: No Respiratory Distress, Chest Non-Tender, Wheezing O2 Sat by Pulse Oximetry: 97 - CARDIOVASCULAR Cardiovascular: Regular Rate, Regular Rhythm, No Murmur - GI/ABDOMEN Gastrointestinal: Abdomen Soft, Abdomen Non-Tender - BACK Back: Normal Inspection - MUSCULOSKELETAL/EXTREMETIES Musculoskeletal/Extremeties: MAEW - NEURO Level of Consciousness: Awake, Alert, Appropriate Motor/Sensory: No Motor Deficit - DERM Integumentary: Warm, Dry Course - Re-evaluation Re-evalutation: 07/21/17 12:59 Respirations unlabored, wheezing improved after nebulizer treatment. Patient encouraged to stop smoking. - Vital Signs Vital signs: Temp Pulse Resp BP Pulse Ox 98.6 F 82 20 127/81 H 97 07/21/17 10:21 07/21/17 10:21 07/21/17 10:21 07/21/17 10:21 07/21/17 10:21 Discharge - Discharge Clinical Impression: Wheezing Upper respiratory infection Qualifiers: URI type: unspecified URI Qualified Code(s): J06.9 - Acute upper respiratory infection, unspecified Condition: Stable Disposition: HOME, SELF-CARE Instructions: Bronchospasm ([facility]), Inhaled Bronchodilators ([facility]), Steroid Medication, Upper Respiratory Illness ([facility]) Additional Instructions: Return immediately for any new or worsening symptoms Followup with your primary care provider, call tomorrow to make a followup appointment Prescriptions: Albuterol Sulfate [Ventolin Hfa] 2 puff IH Q4HP PRN #17 gm PRN Reason: Prednisone [Deltasone 20 mg Tablet] 3 tab PO DAILY 4 Days tablet Forms: Smoking Cessation Education Referrals: [facility] [Provider Group] - Follow up as needed
--- NOTE | 2017-07-21 12:15 | RADIOLOGY REPORT (SQ) ---
EXAM DESCRIPTION: CHEST PA/LAT COMPLETED DATE/TIME: 07/21/2017 12:04 pm REASON FOR STUDY: cough COMPARISON: 11/06/2016 EXAM PARAMETERS: NUMBER OF VIEWS: two views TECHNIQUE: Digital Frontal and Lateral radiographic views of the chest acquired. RADIATION DOSE: NA LIMITATIONS: none FINDINGS: LUNGS AND PLEURA: No opacities, masses or pneumothorax. No pleural effusion. MEDIASTINUM AND HILAR STRUCTURES: No masses or contour abnormalities. HEART AND VASCULAR STRUCTURES: Heart normal size. No evidence for failure. BONES: No acute findings. HARDWARE: None in the chest. OTHER: No other significant finding. IMPRESSION: NO SIGNIFICANT RADIOGRAPHIC FINDING IN THE CHEST. TECHNICAL DOCUMENTATION: JOB ID: [id number] [employer]- All Rights Reserved
[2017-07-21 13:37] VITALS: BP 122/68
== END 2017-07-21 13:37 | disposition home or self-care (01) ==
LOC: ER 10:09
DX: J06.9 Acute upper respiratory infection, unspecified (principal); J44.9 Chronic obstructive pulmonary disease, unspecified; R05 Cough; J02.9 Acute pharyngitis, unspecified; R11.0 Nausea; F17.200 Nicotine dependence, unspecified, uncomplicated; Z20.828 Contact with and (suspected) exposure to other viral communicable diseases; Z85.828 Personal history of other malignant neoplasm of skin
CPT/HCPCS: 94640; 99284; 87070; 87880; 71046; J3490; S0119; J7512; J7620

== ENCOUNTER 2017-09-04 14:54 | Emergency (ER) | payer MEDICAID ==
[2017-09-04 15:03] VITALS: BP 127/72
[2017-09-04] MEDS ORDERED: IBUPROFEN 800 MG TABLET PO ONE (15:48)
--- NOTE | 2017-09-04 16:38 | RADIOLOGY REPORT (SQ) ---
EXAM DESCRIPTION: FOOT RIGHT COMPLETE; ANKLE RIGHT COMPLETE COMPLETED DATE/TIME: 09/04/2017 4:02 pm REASON FOR STUDY: pain and injury COMPARISON: None. NUMBER OF VIEWS: Three views. TECHNIQUE: AP, lateral and oblique radiographic images acquired of the right foot and ankle. LIMITATIONS: None. FINDINGS: MINERALIZATION: Normal. BONES: No acute fracture or dislocation. No worrisome bone lesions. JOINTS: No effusions. SOFT TISSUES: No soft tissue swelling. No foreign body. OTHER: No other significant finding. IMPRESSION: NO RADIOGRAPHIC EVIDENCE OF ACUTE INJURY. TECHNICAL DOCUMENTATION: JOB ID: [id number] [place]-72 2010 [employer]- All Rights Reserved Reading location - IP/workstation name: [email or web address]
--- NOTE | 2017-09-04 16:38 | RADIOLOGY REPORT (SQ) ---
EXAM DESCRIPTION: FOOT RIGHT COMPLETE; ANKLE RIGHT COMPLETE COMPLETED DATE/TIME: 09/04/2017 4:02 pm REASON FOR STUDY: pain and injury COMPARISON: None. NUMBER OF VIEWS: Three views. TECHNIQUE: AP, lateral and oblique radiographic images acquired of the right foot and ankle. LIMITATIONS: None. FINDINGS: MINERALIZATION: Normal. BONES: No acute fracture or dislocation. No worrisome bone lesions. JOINTS: No effusions. SOFT TISSUES: No soft tissue swelling. No foreign body. OTHER: No other significant finding. IMPRESSION: NO RADIOGRAPHIC EVIDENCE OF ACUTE INJURY. TECHNICAL DOCUMENTATION: JOB ID: [id number] [place]-72 2010 [employer]- All Rights Reserved Reading location - IP/workstation name: [email or web address]
--- NOTE | 2017-09-04 17:11 | ER Document Report ---
ED Extremity Problem, Lower - General Chief Complaint: Ankle Injury Stated Complaint: RIGHT ANKLE INJURY Time Seen by Provider: 09/04/17 15:32 Mode of Arrival: Wheelchair Information source: Patient Notes: 36-year-old female presents to ED for complaint of right ankle pain. She states she was at a gas station when she slipped on wet pain and rolled her ankle. She states she had pain immediately. TRAVEL OUTSIDE OF THE [place] IN LAST 30 DAYS: No - HPI Patient complains to provider of: Injury, Pain, Swelling Location: Ankle - Right Occurred: This afternoon Where: Indoors, Public place Onset/Duration: Sudden Quality of pain: Achy Severity: Moderate Pain Level: 3 Context: Other - Rolled her ankle Recent injury: Possibly Associated symptoms: Painful ambulation Exacerbated by: Hanging down, Movement, Walking Relieved by: Nothing - Related Data Allergies/Adverse Reactions: Sulfa (Sulfonamide Antibiotics) Allergy (Mild, Verified 09/04/17 14:58) rash doxycycline Allergy (Verified 09/04/17 14:58) ketorolac tromethamine [From Toradol] Adverse Reaction (Mild, Verified 09/04/17 14:58) spiders Allergy (Severe, Uncoded 09/04/17 14:58) Seizures latex Allergy (Uncoded 09/04/17 14:58) Past Medical History - General Information source: Patient - Social History Smoking Status: Current Every Day Smoker Cigarette use (# per day): Yes Chew tobacco use (# tins/day): No Smoking Education Provided: Yes - 4min Frequency of alcohol use: Rare Drug Abuse: None Occupation: none Lives with: Family Family History: Arthritis, CAD, COPD, CVA, DM, Hyperlipidemia, Hypertension, Malignancy. denies: Thyroid Disfunction Patient has suicidal ideation: No Patient has homicidal ideation: No - Past Medical History Cardiac Medical History: Reports: None Pulmonary Medical History: Reports: Hx Asthma, Hx Bronchitis - Bronchitis with bronchospasm, Hx COPD EENT Medical History: Reports: None Neurological Medical History: Reports: Hx Migraine Endocrine Medical History: Reports: None Renal/ Medical History: Reports: None Malignancy Medical History: Reports: Hx Skin Cancer GI Medical History: Reports: None Musculoskeltal Medical History: Reports Hx Musculoskeletal Deformity, Reports Hx Musculoskeletal Trauma Skin Medical History: Reports None, Reports Hx Psoriasis Psychiatric Medical History: Reports: Hx Anxiety, Hx Depression Traumatic Medical History: Reports: Hx Fractures - hand Infectious Medical History: Reports: None Past Surgical History: Reports: Hx Section - x2, Hx Orthopedic Surgery - lt knee x 4, Hx Tubal Ligation - Immunizations Immunizations up to date: Yes Hx Diphtheria, Pertussis, Tetanus Vaccination: Yes - november 2014 Review of Systems - Review of Systems Constitutional: No symptoms reported EENT: No symptoms reported Cardiovascular: No symptoms reported Respiratory: No symptoms reported Gastrointestinal: No symptoms reported Genitourinary: No symptoms reported Female Genitourinary: No symptoms reported Musculoskeletal: No symptoms reported Skin: No symptoms reported Hematologic/Lymphatic: No symptoms reported Neurological/Psychological: No symptoms reported -: Yes All other systems reviewed and negative Physical Exam - Vital signs Vitals: Temp Pulse Resp BP Pulse Ox 97.8 F 64 16 127/72 H 97 09/04/17 15:01 09/04/17 15:01 09/04/17 15:01 09/04/17 15:01 09/04/17 15:01 Interpretation: Normal - General General appearance: Appears well, Alert - HEENT Head: Normocephalic, Atraumatic Eyes: Normal Pupils: PERRL - Respiratory Respiratory status: No respiratory distress Chest status: Nontender Breath sounds: Normal Chest palpation: Normal - Cardiovascular Rhythm: Regular Heart sounds: Normal auscultation Murmur: No - Abdominal Inspection: Normal Distension: No distension Bowel sounds: Normal Tenderness: Nontender Organomegaly: No organomegaly - Back Back: Normal, Nontender - Extremities General upper extremity: Normal inspection, Nontender, Normal color, Normal ROM , Normal temperature General lower extremity: Normal inspection, Normal color, Normal temperature, Normal weight bearing. No: Aldo's sign Ankle: Tender. No: Ecchymosis, Edema, Limited ROM - Pain with range of motion, Positive Mcgovern's test, Unable to bear weight Foot: Tender - Neurological Neuro grossly intact: Yes Cognition: Normal Orientation: AAOx4 [place] Coma Scale Eye Opening: Spontaneous [place] Coma Scale Verbal: Oriented [place] Coma Scale Motor: Obeys Commands Lisandra Coma Scale Total: 15 Speech: Normal Motor strength normal: LUE, RUE, LLE, RLE Sensory: Normal - Psychological Associated symptoms: Normal affect, Normal mood - Skin Skin Temperature: Warm Skin Moisture: Dry Skin Color: Normal Course - Re-evaluation Re-evalutation: 04/07/18 18:02 The patient is nontoxic appearing with stable vitals. They are afebrile. Ankle exam shows no deformities with no obvious ligament instability. There is a normal pulse and sensation distally. There is no redness or signs of infection. X-rays show no acute fracture per the radiologist. Patient will be placed in an Elmer wrap for comfort. Crutches will be offered and given if requested. Patient will be instructed to follow-up with not better in 1 week, sooner for increasing pain, fever, redness, numbness, tingling, weakness, any further concerns. Patient will be instructed to rest, ice, elevate their ankle. - Vital Signs Vital signs: Temp Pulse Resp BP Pulse Ox 97.8 F 64 16 127/72 H 97 09/04/17 15:01 09/04/17 15:01 09/04/17 15:01 09/04/17 15:01 09/04/17 15:01 - Diagnostic Test Radiology reviewed: Image reviewed, Reports reviewed Procedures - Immobilization Right Ankle Time completed: 17:15 Pre-Proc Neuro Vasc Exam: Normal Immobilizer type: Elmer wrap Performed by: PCT Post-Proc Neuro Vasc Exam: Normal Alignment checked and good: Yes Discharge - Discharge Clinical Impression: Right ankle injury Qualifiers: Encounter type: initial encounter Qualified Code(s): S99.911A - Unspecified injury of right ankle, initial encounter Condition: Stable Disposition: HOME, SELF-CARE Additional Instructions: SPRAINED ANKLE: Your sprained ankle results from stretching or tearing of the ligaments which support the ankle. This usually results from twisting the foot inward and under. The ligaments will require time and protection in order to heal properly. Many ankle sprains are quite disabling, and should be taken seriously. The usual treatment for an ankle sprain is cold packs; protection with tape , splints, or wraps; elevation; and staying off the ankle for at least a day. As the ankle improves, you can walk IF it's not painful to bear weight. Sports are best postponed until healing is complete. More serious sprains usually require strengthening exercises after early healing. Your physician has assessed the seriousness of the ligament injury to your ankle. However, the treatment may change, depending on how your ankle progresses. If further exams were recommended, it is important that you follow through. Call the doctor if your foot becomes numb, painful, or severely swollen. ELMER WRAP: A compression dressing (elmer wrap) has been placed. This helps hold the area still. It limits swelling and internal bleeding. The wrap should be comfortably snug -- not tight. You should feel a sense of pressure, but not severe pain under the wrap. Unless the physician tells you otherwise, you can adjust the wrap for comfort. If the wrap causes symptoms suggesting it's too tight -- uncomfortable pressure, swelling or discoloration beyond the wrap, numbness, or severe pain - - you must loosen the wrap. If these symptoms don't resolve promptly, return for re-evaluation. ICE & ELEVATION: Apply ice packs frequently against the painful area. Many different schedules are recommended, such as "20 minutes on, 20 minutes off" or "one hour ice, two hours rest." If you need to work, you may need to go longer between ice treatments. You should plan to have the area ice packed AT LEAST one- fourth of the time. The ice should be applied over the wrap, tape, or splint, or over a layer of cloth -- not directly against the skin. Some ice bags have a built-in cloth and can be put directly on the skin. Your injured part should be elevated as much as possible over the next 48 hours. Try to keep the injury above the level of the heart. Avoid use of the injured area. Elevation and rest will decrease the swelling. USE OF [id number] IBUPROFEN: Ibuprofen (Advil, Nuprin, Medipren, Motrin IB) is a medication for fever and pain control. In addition, it has anti- inflammatory effects which may be beneficial, especially in the treatment of injuries. It's best to take ibuprofen with food. Persons with ulcer disease or allergy to aspirin should notify their physician of this before taking ibuprofen. Ibuprofen can be given every four to six hours, for a total of four doses daily. Age Pain or fever dose Antiinflammatory dose 6-8 yr 200 mg (1 tab) 200 mg (1 tab) 9-11 yr 200 mg (1 tab) 200-400 mg (1-2 tab) 11-14 yr 200-400 mg (1-2 tab) 400 mg (2 tab) 15-adult 400 mg (2 tab) 600 mg (3 tab) FOLLOW-UP CARE: If you have been referred to a physician for follow-up care, call the physician s office for an appointment as you were instructed or within the next two days. If you experience worsening or a significant change in your symptoms, notify the physician immediately or return to the Emergency Department at any time for re-evaluation. Forms: Elevated Blood Pressure, Smoking Cessation Education Referrals: SHAYNE CHÁVEZ MD [Primary Care Provider] - Follow up as needed
== END 2017-09-04 17:51 | disposition home or self-care (01) ==
LOC: ER 14:54
DX: S99.911A Unspecified injury of right ankle, initial encounter (principal); M25.571 Pain in right ankle and joints of right foot; W01.0XXA Fall on same level from slipping, tripping and stumbling without subsequent striking against object, initial encounter; Y92.524 Gas station as the place of occurrence of the external cause; F17.210 Nicotine dependence, cigarettes, uncomplicated; J44.9 Chronic obstructive pulmonary disease, unspecified
CPT/HCPCS: 99406; 99283; 73610; 73630; J3490

== ENCOUNTER 2018-02-27 10:50 | Emergency (ER) | payer MEDICAID ==
[2018-02-27] MEDS ORDERED: IPRATROPIUM/ALBUTEROL 0.5-2.5 MG/3 ML AMPUL NEB ONE ×2 (11:19→14:11)
[2018-02-27] MEDS ORDERED: METHYLPREDNISOLONE INJ 125 MG/2 ML SDV IM ONE (11:20)
[2018-02-27] MEDS ORDERED: ACETAMINOPHEN WITH CODEINE #3 TABLET PO ONE (11:24)
--- NOTE | 2018-02-27 11:27 | ER Document Report ---
ED Respiratory Problem - General Chief Complaint: Shortness Of Breath Stated Complaint: SHORT OF BREATH,COUGH,CONGESTION Time Seen by Provider: 02/27/18 11:13 Mode of Arrival: Ambulatory Information source: Patient Notes: Patient is a well-nourished well-developed 37-year-old female who appears ill. Patient states she has been sick for couple days with cough congestion runny nose. But she woke up this morning and could not breathe. She states she has a history of asthma she smokes approximately a pack of cigarettes a day she works at [employer] she is around a lot of different people. She has used her inhaler multiple times without any success. She states that when she lays down the coughing gets worse and she is coughs almost to gagging and vomiting. The cough is not been productive at all today but prior to that she was getting up some just frothy sputum. Last menstrual period was somewhere between the 10th and 15th of last month she had a tubal ligation. TRAVEL OUTSIDE OF THE [place] IN LAST 30 DAYS: No - HPI Patient complains to provider of: Asthma Onset: Other - 2 days Duration: Continuous, Worse/persistent Initiating Event: URI Quality of pain: No pain Severity: Moderate Context: Smoker Cough: Nonproductive Associated symptoms: Chills, Congestion, Cough, Facial pain, Runny nose, Sinus pain/pressure, Short of breath, Wheezing Similar symptoms previously: Yes Recently seen / treated by doctor: No - Related Data Allergies/Adverse Reactions: Sulfa (Sulfonamide Antibiotics) Allergy (Mild, Verified 02/27/18 10:50) rash doxycycline Allergy (Verified 02/27/18 10:50) ketorolac tromethamine [From Toradol] Adverse Reaction (Mild, Verified 02/27/18 10:50) spiders Allergy (Severe, Uncoded 02/27/18 10:50) Seizures latex Allergy (Uncoded 02/27/18 10:50) Past Medical History - General Information source: Patient - Social History Smoking Status: Current Every Day Smoker Cigarette use (# per day): Yes - Pack a day Chew tobacco use (# tins/day): No Smoking Education Provided: Yes Frequency of alcohol use: None Drug Abuse: None Lives with: Family Family History: Reviewed & Not Pertinent, Arthritis, CAD, COPD, CVA, DM, Hyperlipidemia, Hypertension, Malignancy. denies: Thyroid Disfunction Patient has suicidal ideation: No Patient has homicidal ideation: No Pulmonary Medical History: Reports: Hx Asthma, Hx Bronchitis - Bronchitis with bronchospasm, Hx COPD Neurological Medical History: Reports: Hx Migraine Renal/ Medical History: Denies: Hx Peritoneal Dialysis Malignancy Medical History: Reports: Hx Skin Cancer Musculoskeletal Medical History: Reports Hx Musculoskeletal Deformity, Reports Hx Musculoskeletal Trauma Skin Medical History: Reports Hx Psoriasis Psychiatric Medical History: Reports: Hx Anxiety, Hx Depression Traumatic Medical History: Reports: Hx Fractures - hand Past Surgical History: Reports: Hx Section - x2, Hx Orthopedic Surgery - lt knee x 4, Hx Tubal Ligation - Immunizations Immunizations up to date: Yes Hx Diphtheria, Pertussis, Tetanus Vaccination: Yes - november 2014 Review of Systems - Review of Systems Constitutional: Chills EENT: Nose discharge, Sinus pressure Cardiovascular: No symptoms reported Respiratory: Cough, Hurts to breathe, Short of breath, Wheezing Gastrointestinal: No symptoms reported Genitourinary: No symptoms reported Female Genitourinary: No symptoms reported Musculoskeletal: No symptoms reported Skin: No symptoms reported Hematologic/Lymphatic: No symptoms reported Neurological/Psychological: No symptoms reported -: Yes All other systems reviewed and negative Physical Exam - Vital signs Vitals: Temp Pulse Resp BP Pulse Ox 97.9 F 70 21 H 142/90 H 97 02/27/18 10:53 02/27/18 10:53 02/27/18 10:53 02/27/18 10:53 02/27/18 10:53 Interpretation: Hypertensive - Notes Notes: Well-nourished well-developed 37-year-old female who appears ill. Even on physical examination she is coughing and hacking. - General General appearance: Alert, Anxious - HEENT Head: Normocephalic, Atraumatic Eyes: Normal Sinus: Abnormal, Frontal, Maxillary, Swelling, Tenderness Nasal: Clear rhinorrhea Mouth/Lips: Normal. No: Angioedema Mucous membranes: Normal, Moist Pharynx: Erythema, Post nasal drainage, Uvular edema. No: Exudate, Peritonsillar abscess, Retropharyngeal abscess, Tonsillar hypertrophy, Potential airway comprom. Neck: Normal, Supple. No: Anterior cervical chain, Posterior cervical chain, Lymphadenopathy, Meningismus, Neck mass, Shotty nodes, Subcutaneous emphysema, Thyroid nodule, Thyromegally - Respiratory Respiratory status: No respiratory distress Chest status: Nontender Breath sounds: Decreased air movement, Wheezing, Other - Auscultation patient's lungs show she has bilateral breath sounds breath sounds decreased throughout all lung de dios. She has bilateral inspiratory and expiratory wheeze noted very tight. He also has upper airway rhonchi noted. Rhonchi clears on cough. Chest palpation: Normal - Cardiovascular Rhythm: Regular Heart sounds: Normal auscultation Murmur: No - Neurological Neuro grossly intact: Yes Cognition: Normal Orientation: AAOx4 [place] Coma Scale Eye Opening: Spontaneous [place] Coma Scale Verbal: Oriented [place] Coma Scale Motor: Obeys Commands Lisandra Coma Scale Total: 15 Speech: Normal - Skin Skin Temperature: Warm Skin Moisture: Moist Course - Re-evaluation Re-evalutation: 02/27/18 15:20 Patient is been a little on the difficult side to break of her wheezing. She is received 125 of Solu-Medrol she had it back to albuterol ipratropium x2 treatment and with a low but an hour in between and then I reordered a second round of the ipratropium and albuterol. This time she is gotten much better response and she is breathing much more freely. Reevaluation shows her to have inspiratory and expiratory wheezes but they are so minute now she looks so much better with her breathing. Believe that the Solu-Medrol has kicked in as well. We will send her home on a 6-day prednisone taper she has enough of her inhalers at home. I will also place her on some Sudafed to dry her up. She does want to go back to work tomorrow so we will attempt to do so. That told her that if she gets to the point where she cannot breathe again to come back and we will probably do lab work and admit her. 02/27/18 15:21 I do not believe that she needs antibiotics at this time a believe this is more of a asthmatic bronchitis secondary to her smoking with a little bit of a sinus disease added on. - Vital Signs Vital signs: Temp Pulse Resp BP Pulse Ox 98.4 F 68 16 135/74 H 97 02/27/18 13:51 02/27/18 13:51 02/27/18 13:51 02/27/18 13:51 02/27/18 13:51 Discharge - Discharge Clinical Impression: Asthmatic bronchitis with acute exacerbation Qualifiers: Asthma severity: moderate Asthma persistence: persistent Qualified Code(s): J45.41 - Moderate persistent asthma with (acute) exacerbation Condition: Stable Disposition: HOME, SELF-CARE Instructions: Bronchitis ([facility]) Additional Instructions: Home today rest. Stay cool and cut back smoking as much as possible. You can start the steroids tomorrow which she can take the Sudafed today. You should build return to work tomorrow however if you get back into a situation where you have difficulty get short your breath return to ER once for recheck. Prescriptions: Acetaminophen with Codeine [Tylenol #3 Tablet] 1 each PO Q4HP PRN #14 tablet PRN Reason: Prednisone [Sterapred Ds] 10 mg PO ASDIR PRN #1 tab.ds.pk PRN Reason: Pseudoephedrine HCl [Sudafed 12 Hour] 120 mg PO BID #20 tablet.er Referrals: SHAYNE CHÁVEZ MD [Primary Care Provider] - Follow up as needed
--- NOTE | 2018-02-27 12:27 | RADIOLOGY REPORT (SQ) ---
EXAM DESCRIPTION: CHEST 2 VIEWS COMPLETED DATE/TIME: 02/27/2018 12:13 pm REASON FOR STUDY: Shortness of breath COMPARISON: 07/21/2017. NUMBER OF VIEWS: Two view. TECHNIQUE: Frontal and lateral radiographic views of the chest acquired. LIMITATIONS: None. FINDINGS: LUNGS AND PLEURA: Low lung volumes. No opacities, masses or pneumothorax. No pleural eff usion. MEDIASTINUM AND HILAR STRUCTURES: No masses. No contour abnormalities. HEART AND VASCULAR STRUCTURES: Heart normal in size and contour. No evidence for failure. BONES: No acute findings. HARDWARE: None in the chest. OTHER: No other significant finding. IMPRESSION: LOW LUNG VOLUMES. NO SIGNIFICANT RADIOGRAPHIC FINDING IN THE CHEST. TECHNICAL DOCUMENTATION: JOB ID: [id number] [employer]- All Rights Reserved Reading location - IP/workstation name: [email or web address]
[2018-02-27 13:51] VITALS: BP 135/74
== END 2018-02-27 15:50 | disposition home or self-care (01) ==
LOC: ER 10:50
DX: J45.41 Moderate persistent asthma with (acute) exacerbation (principal); J44.9 Chronic obstructive pulmonary disease, unspecified; R05 Cough; F17.210 Nicotine dependence, cigarettes, uncomplicated; R09.82 Postnasal drip; R68.83 Chills (without fever); R51 Headache; J34.89 Other specified disorders of nose and nasal sinuses; R07.1 Chest pain on breathing; Z88.2 Allergy status to sulfonamides; Z88.1 Allergy status to other antibiotic agents; Z91.040 Latex allergy status; Z91.038 Other insect allergy status; Z85.828 Personal history of other malignant neoplasm of skin
CPT/HCPCS: 94640 ×2; 99285; 96372; 71046; J2930; J7620

== ENCOUNTER 2018-03-03 14:43 | Emergency (ER) | payer MEDICAID ==
[2018-03-03 14:56] VITALS: BP 121/71
[2018-03-03] MEDS ORDERED: METHYLPREDNISOLONE INJ 125 MG/2 ML SDV IV ONE (15:22)
[2018-03-03] MEDS ORDERED: IPRATROPIUM/ALBUTEROL 0.5-2.5 MG/3 ML AMPUL NEB ONE (15:23)
[2018-03-03] MEDS ORDERED: AZITHROMYCIN 250 MG TABLET PO ONE (15:23)
[2018-03-03] MEDS ORDERED: DEXAMETHASONE SOD PHOS INJ 10 MG/1 ML VIAL IM ONE (15:31)
--- NOTE | 2018-03-03 15:44 | RADIOLOGY REPORT (SQ) ---
EXAM DESCRIPTION: CHEST 2 VIEWS COMPLETED DATE/TIME: 03/03/2018 3:32 pm REASON FOR STUDY: cough short of breath COMPARISON: Chest films 02/27/2018, 07/21/2017, 11/06/2016 EXAM PARAMETERS: NUMBER OF VIEWS: two views TECHNIQUE: Digital Frontal and Lateral radiographic views of the chest acquired. RADIATION DOSE: NA LIMITATIONS: none FINDINGS: LUNGS AND PLEURA: No opacities, masses or pneumothorax. No pleural effusion. MEDIASTINUM AND HILAR STRUCTURES: No masses or contour abnormalities. HEART AND VASCULAR STRUCTURES: Heart normal size. No evidence for failure. BONES: No acute findings. HARDWARE: None in the chest. OTHER: No other significant finding. IMPRESSION: NO ACUTE RADIOGRAPHIC FINDING IN THE CHEST. TECHNICAL DOCUMENTATION: JOB ID: [id number] [email or web address]- All Rights Reserved Reading location - IP/workstation name: [email or web address]
[2018-03-03] MEDS: ALBUTEROL SULFATE 0.083% NEB 2.5 MG/3 ML AMPUL NEB SCH ×3 (15:52→17:02)
--- NOTE | 2018-03-03 16:59 | ER Document Report ---
ED Respiratory Problem - General Chief Complaint: Breathing Difficulty Stated Complaint: BREATHING TROUBLE Time Seen by Provider: 03/03/18 14:58 Mode of Arrival: Ambulatory Information source: Patient Notes: 37-year-old female presents to ED for cough cold congestion difficulty breathing wheezing coughing for 2 weeks. She was seen here Wednesday and treated with steroids and nebulizer treatments. She states she is not getting any better. She denies any fevers. States she does have a history of asthma and does smoke about 1/2 pack a day. Patient is alert and oriented. She is coughing and wheezing. TRAVEL OUTSIDE OF THE [place] IN LAST 30 DAYS: No - HPI Patient complains to provider of: Asthma, Cough, Short of breath Onset: Other - 2 weeks Duration: Continuous Initiating Event: URI, Other - Continues to smoke Quality of pain: Achy Severity: Moderate Context: Hx asthma, Smoker Short of Breath: Moderate Chest pain/discomfort: Tightness Cough: Nonproductive Sputum amount: None At home treatment: Bronchodilators, Oral steroids Associated symptoms: Congestion, Cough, PND, Runny nose, Sinus pain/pressure, Short of breath, Wheezing. denies: Fever Similar symptoms previously: Yes Recently seen / treated by doctor: Yes - Related Data Allergies/Adverse Reactions: Sulfa (Sulfonamide Antibiotics) Allergy (Mild, Verified 03/03/18 14:44) rash doxycycline Allergy (Verified 03/03/18 14:44) ketorolac tromethamine [From Toradol] Adverse Reaction (Mild, Verified 03/03/18 14:44) spiders Allergy (Severe, Uncoded 02/27/18 10:50) Seizures latex Allergy (Uncoded 02/27/18 10:50) Past Medical History - General Information source: Patient - Social History Smoking Status: Current Every Day Smoker Cigarette use (# per day): Yes - Half pack a day Chew tobacco use (# tins/day): No Smoking Education Provided: Yes - 4 minutes Frequency of alcohol use: None Drug Abuse: None Lives with: Family Family History: Reviewed & Not Pertinent, Arthritis, CAD, COPD, CVA, DM, Hyperlipidemia, Hypertension, Malignancy. denies: Thyroid Disfunction Patient has suicidal ideation: No Patient has homicidal ideation: No - Past Medical History Cardiac Medical History: Reports: None Pulmonary Medical History: Reports: Hx Asthma, Hx Bronchitis - Bronchitis with bronchospasm, Hx COPD EENT Medical History: Reports: None Neurological Medical History: Reports: Hx Migraine Endocrine Medical History: Reports: None Renal/ Medical History: Reports: None Malignancy Medical History: Reports: Hx Skin Cancer GI Medical History: Reports: None Musculoskeletal Medical History: Reports Hx Musculoskeletal Deformity, Reports Hx Musculoskeletal Trauma Skin Medical History: Reports Hx Psoriasis Psychiatric Medical History: Reports: Hx Anxiety, Hx Depression Traumatic Medical History: Reports: Hx Fractures - hand Infectious Medical History: Reports: None Past Surgical History: Reports: Hx Section - x2, Hx Orthopedic Surgery - lt knee x 4, Hx Tubal Ligation - Immunizations Immunizations up to date: Yes Hx Diphtheria, Pertussis, Tetanus Vaccination: Yes - november 2014 Review of Systems - Review of Systems Constitutional: Recent illness EENT: Nose congestion, Nose discharge, Sinus pressure, Sinus discharge Cardiovascular: No symptoms reported Respiratory: Cough, Short of breath, Wheezing Gastrointestinal: No symptoms reported Genitourinary: No symptoms reported Female Genitourinary: No symptoms reported Musculoskeletal: No symptoms reported Skin: No symptoms reported Hematologic/Lymphatic: No symptoms reported Neurological/Psychological: No symptoms reported -: Yes All other systems reviewed and negative Physical Exam - Vital signs Vitals: Temp Pulse Resp BP Pulse Ox 98.4 F 67 16 121/71 96 03/03/18 14:52 03/03/18 14:52 03/03/18 14:52 03/03/18 14:52 03/03/18 14:52 Interpretation: Normal - General General appearance: Appears well, Alert - HEENT Head: Normocephalic, Atraumatic Eyes: Normal Pupils: PERRL - Respiratory Respiratory status: No respiratory distress Chest status: Nontender Breath sounds: Decreased air movement, Nonproductive cough, Rhonchi, Wheezing Chest palpation: Normal - Cardiovascular Rhythm: Regular Heart sounds: Normal auscultation Murmur: No - Abdominal Inspection: Normal Distension: No distension Bowel sounds: Normal Tenderness: Nontender Organomegaly: No organomegaly - Back Back: Normal, Nontender - Extremities General upper extremity: Normal inspection, Nontender, Normal color, Normal ROM , Normal temperature General lower extremity: Normal inspection, Nontender, Normal color, Normal ROM , Normal temperature, Normal weight bearing. No: Aldo's sign - Neurological Neuro grossly intact: Yes Cognition: Normal Orientation: AAOx4 Helper Coma Scale Eye Opening: Spontaneous Helper Coma Scale Verbal: Oriented Helper Coma Scale Motor: Obeys Commands Lisandra Coma Scale Total: 15 Speech: Normal Motor strength normal: LUE, RUE, LLE, RLE Sensory: Normal - Psychological Associated symptoms: Normal affect, Normal mood - Skin Skin Temperature: Warm Skin Moisture: Dry Skin Color: Normal Course - Re-evaluation Re-evalutation: 03/03/18 21:11 Patient was treated with IM steroids and 1 DuoNeb and 3 albuterol treatments. Patient was breathing much better and able to take deep breaths with no discomfort after her 4 breathing treatments. She was also started on azithromycin and given 500 mg in the emergency room. Patient was discharged home with prescription for azithromycin and another albuterol inhaler. Patient was instructed to follow-up with her primary doctor tomorrow to ensure that she is continuing to improve. Patient was instructed to return to the ED immediately if she became as short of breath as she was when she came in today. Patient is afebrile and chest x-ray was negative. - Vital Signs Vital signs: Temp Pulse Resp BP Pulse Ox 98.4 F 67 16 121/71 96 03/03/18 14:52 03/03/18 14:52 03/03/18 14:52 03/03/18 14:52 03/03/18 14:52 - Diagnostic Test Radiology reviewed: Image reviewed, Reports reviewed Discharge - Discharge Clinical Impression: Asthmatic bronchitis with acute exacerbation Qualifiers: Asthma severity: moderate Asthma persistence: persistent Qualified Code(s): J45.41 - Moderate persistent asthma with (acute) exacerbation Condition: Stable Disposition: HOME, SELF-CARE Instructions: Family Physicians / Practices Additional Instructions: ASTHMA: You have been diagnosed as having asthma. This is a condition where there is episodic tightness in the bronchial tubes. Allergies, infections, and polluted or cold air may be contributing factors. Emergency treatment of a severe asthma attack may include adrenaline shots , or bronchodilator aerosol. You may feel lightheaded, have a decreased exercise tolerance and a rapid pulse for an hour or two. Rest and get plenty of fluids. Home treatment of asthma requires bronchodilator drugs. These can be administered by injection, inhalation, or by mouth. Antibiotics and corticosteroids may be required for some patients. You should avoid chemical fumes, dusts, pollens, and exercising in very cold or dry air. If you smoke, stop!! If you develop a fever, increased wheezing, chest pain, or severe shortness of breath, you should contact the doctor immediately. STEROID MEDICATION: You have been given an injection of or oral medicine of the cortisone/ steroid class. This medication is used to control inflammation or allergy. Evan t is usually only given for a short period of time, until the acute process subsides. There are usually no side effects from short-term use of cortisone-like medications. Some persons feel an increased sense of well-being and are not sleepy at bedtime. Long-term use of cortisone medications is best avoided, unless required for a severe condition. If your condition does not remit, or relapses after the course of corticosteroid medication, you should consult your physician. INHALED BRONCHODILATORS: You have received treatment(s) of and/or prescription for an inhaled bronchodilator -- a medication which stimulates the airways in the lung to dilate. This improves the flow of air in asthma, bronchitis, and emphysema. These medicines have some similarity to adrenaline, and can cause similar side effects: shakiness, racing heart, and a sense of nervousness. These side effects decrease with time. Contact your doctor if these side effects are severe. Do not over-use the medicine. Too-frequent use of the inhaler may make it ineffective. Call your doctor if the inhaler is not controlling your symptoms at the prescribed doses. SMOKING: If you smoke, you should stop smoking. The tar and chemicals in cigarette smoke are harmful. Smoking has been shown to cause: emphysema chronic bronchitis lung cancer mouth and throat cancer stomach and pancreas cancer premature aging defects In addition, smoking increases ear and lung infections in children of smokers. AZITHROMYCIN: Azithromycin (Zithromax) is a broad spectrum antibiotic in the same class as erythromycin. It can treat a variety of bacterial infections, but is most frequently used for respiratory infections. Azithromycin is extremely long-lasting. It accumulates in body tissues and continues to kill bacteria for many days. In order to improve absorption, Azithromycin should be taken at least one hour before or two hours after a meal. It does not have the same strong tendency to upset the stomach as erythromycin and is usually very well tolerated. Patients who have had a rash or other true allergic reactions to erythromycin should not take this medication. Call if you develop gastrointestinal distress, severe diarrhea, rash, hives, itching, or shortness of breath. USE OF ACETAMINOPHEN (Tylenol): Acetaminophen may be taken for pain relief or fever control. It's much safer than aspirin, offering a wider range of "safe" dosages. It is safe during . Some brand names are Tylenol, Panadol, Datril, Anacin 3, Tempra, and Liquiprin. Acetaminophen can be repeated every four hours. The following are maximum recommended dosages: WEIGHT Dose Drops Elixir Chewable( 80mg) (LBS.) drprs=droppers tsp=teaspoon 6 40 mg 0.4 ml (1/2) 6-11 80 mg 0.8 ml (full) tsp 1 tab 12-16 120 mg 1 1/2 drprs 3/4 tsp 1 1/2 tabs 17-23 160 mg 2 drprs 1 tsp 2 tabs 24-30 240 mg 3 drprs 1 1/2 tsp 3 tabs 30-35 320 mg 2 tsp 4 tabs 36-41 360 mg 2 1/4 tsp 4 1/2 tabs 42-47 400 mg 2 1/2 tsp 5 tabs 48-53 480 mg 3 tsp 6 tabs 54-59 520 mg 3 1/4 tsp 6 1/2 tabs 60-64 560 mg 3 1/2 tsp 7 tabs 65-70 600 mg 3 3/4 tsp 7 1/2 tabs 71-76 640 mg 4 tsp 8 tabs 77-82 720 mg 4 1/2 tsp 9 tabs 83-88 800 mg 5 tsp 10 tabs >89 pounds or adults 650 mg to 900 mg Acetaminophen can be repeated every four hours. Maximum dose not to exceed 4000 mg a day. These maximum recommended dosages are slightly higher than the dosages written on the product container, but these dosages are very safe and below the toxic dosage for acetaminophen. FOLLOW-UP CARE: If you have been referred to a physician for follow-up care, call the physician s office for an appointment as you were instructed or within the next two days. If you experience worsening or a significant change in your symptoms, notify the physician immediately or return to the Emergency Department at any time for re-evaluation. Prescriptions: Albuterol Sulfate [Proair HFA Inhalation Aerosol 8.5 gm MDI] 2 puff IH Q4H PRN # 1 mdi PRN Reason: Azithromycin 250 mg PO DAILY #4 tablet Forms: Smoking Cessation Education
== END 2018-03-03 17:17 | disposition home or self-care (01) ==
LOC: ER 14:43
DX: J45.41 Moderate persistent asthma with (acute) exacerbation (principal); F17.210 Nicotine dependence, cigarettes, uncomplicated; Z88.2 Allergy status to sulfonamides; Z91.040 Latex allergy status; Z88.3 Allergy status to other anti-infective agents
CPT/HCPCS: 99406; 94640 ×2; 99285; 96372; 71046; Q0144; J1100; J7620

== ENCOUNTER 2018-10-06 02:07 | Emergency (ER) | payer MEDICAID ==
[2018-10-06 03:00] VITALS: BP 143/93
== END 2018-10-06 05:32 | disposition left against medical advice (07) ==
LOC: ER 02:07
DX: Z53.21 Procedure and treatment not carried out due to patient leaving prior to being seen by health care provider (principal)

== ENCOUNTER 2018-11-11 02:31 | Emergency (ER) | payer MEDICAID, OTHER ==
[2018-11-11] MEDS ORDERED: HYDROCODONE/ACETAMINOPHEN 10-325 MG TABLET PO ONE (06:29)
[2018-11-11] MEDS ORDERED: CALCIUM GLUCONATE 1000 MG/10 ML INJ IV ONE (06:30)
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
[2018-11-11 07:14] VITALS: BP 145/87
== END 2018-11-11 07:21 | disposition home or self-care (01) ==
LOC: ER 02:31
DX: T23.601A Corrosion of second degree of right hand, unspecified site, initial encounter (principal); Y92.89 Other specified places as the place of occurrence of the external cause; F41.9 Anxiety disorder, unspecified; F32.9 Major depressive disorder, single episode, unspecified; R40.2412 Glasgow coma scale score 13-15, at arrival to emergency department; Z88.2 Allergy status to sulfonamides; Z88.8 Allergy status to other drugs, medicaments and biological substances; Z91.040 Latex allergy status; Z85.828 Personal history of other malignant neoplasm of skin
CPT/HCPCS: 99283; 96374; J0610

== ENCOUNTER 2019-12-09 18:25 | Emergency (ER) | payer SELFPAY ==
--- NOTE | 2019-12-09 18:34 | ER Document Report ---
ED Medical Screen (RME) - General Chief Complaint: Vaginal Bleeding Stated Complaint: VAGINAL BLEEDING/CLOTS Time Seen by Provider: 12/09/19 18:31 Mode of Arrival: Ambulatory Information source: Patient Notes: This 38-year-old female presented to the emergency room today stating that she has had irregular menstrual cycles over the last couple of months she had an episode of bleeding for 20 days she has stopped bleeding for 11 days and then just started again today with a very heavy clots. TRAVEL OUTSIDE OF THE [place] IN LAST 30 DAYS: No - Related Data Allergies/Adverse Reactions: Sulfa (Sulfonamide Antibiotics) Allergy (Mild, Verified 03/03/18 14:44) rash doxycycline Allergy (Verified 03/03/18 14:44) ketorolac tromethamine [From Toradol] Adverse Reaction (Mild, Verified 03/03/18 14:44) spiders Allergy (Severe, Uncoded 02/27/18 10:50) Seizures latex Allergy (Uncoded 02/27/18 10:50) Past Medical History - Social History Family history: Reviewed & Not Pertinent Pulmonary Medical History: Reports: Hx Asthma, Hx Bronchitis - Bronchitis with bronchospasm, Hx COPD Neurological Medical History: Reports: Hx Migraine Renal/ Medical History: Denies: Hx Peritoneal Dialysis Malignancy Medical History: Reports: Hx Skin Cancer Musculoskeltal Medical History: Reports Hx Musculoskeletal Deformity, Reports Hx Musculoskeletal Trauma Skin Medical History: Reports Hx Psoriasis Psychiatric Medical History: Reports: Hx Anxiety, Hx Depression Traumatic Medical History: Reports: Hx Fractures - hand Past Surgical History: Reports: Hx Section - x2, Hx Orthopedic Surgery - lt knee x 4, Hx Tubal Ligation - Immunizations Immunizations up to date: Yes Hx Diphtheria, Pertussis, Tetanus Vaccination: Yes - november 2014 Physical Exam - Vital signs Vitals: Temp Pulse Resp BP Pulse Ox 98.4 F 73 16 138/98 H 98 12/09/19 18:31 12/09/19 18:31 12/09/19 18:31 12/09/19 18:31 12/09/19 18:31 Course - Vital Signs Vital signs: Temp Pulse Resp BP Pulse Ox 98.4 F 73 16 138/98 H 98 12/09/19 18:31 12/09/19 18:31 12/09/19 18:31 12/09/19 18:31 12/09/19 18:31
[2019-12-09 18:55] LABS: ABSOLUTE BASOPHILS # (AUTO) 0.1 10^3/uL (0.0-0.2); ABSOLUTE EOSINOPHILS # (AUTO) 0.4 10^3/uL (0.0-0.6); ABSOLUTE LYMPHOCYTES (AUTO) 3.2 10^3/uL (0.5-4.7); ABSOLUTE MONOCYTES (AUTO) 0.6 10^3/uL (0.1-1.4); ABSOLUTE NEUT (AUTO) 4.7 10^3/uL (1.7-8.2); BASOPHILS % (AUTO) 1.2 % (0-2); EOSINOPHILS % (AUTO) 3.9 % (0-6); HEMATOCRIT 39.8 % (36.0-47.0); HEMOGLOBIN 13.5 g/dL (12.0-15.5); LYMPHOCYTES % (AUTO) 35.7 % (13-45); MEAN CORPUSCULAR VOLUME 91 fl (80-97); MONOCYTES % (AUTO) 6.2 % (3-13); PLATELET COUNT 286 10^3/uL (150-450); RED BLOOD COUNT 4.36 10^6/uL (3.72-5.28); RED CELL DISTRIBUTION WIDTH 14.1 % (11.5-14.0); TOTAL CELLS COUNTED % (AUTO) 100 %
[2019-12-09 19:13] LABS: ALKALINE PHOSPHATASE 78 U/L (38-126); ANION GAP 8 (5-19); ASPARTATE AMINO TRANSFERASE 30 U/L (14-36); BILIRUBIN,TOTAL 0.3 mg/dL (0.2-1.3); BLOOD UREA NITROGEN 7 mg/dL (7-20); CALCIUM 9.5 mg/dL (8.4-10.2); CARBON DIOXIDE 23 mmol/L (22-30); CHLORIDE 106 mmol/L (98-107); GLUCOSE 110 mg/dL (75-110); POTASSIUM 3.6 mmol/L (3.6-5.0); TOTAL PROTEIN 6.9 g/dL (6.3-8.2)
--- NOTE | 2019-12-09 20:15 | RADIOLOGY REPORT (SQ) ---
EXAM DESCRIPTION: US PELVIS TRANSVAGINAL COMPLETED DATE/TME: 12/09/2019 18:33 CLINICAL HISTORY: 38 years Female pain COMPARISON: None. TECHNIQUE: Transvaginal duplex imaging performed to evaluate the pelvis. FINDINGS: Uterus measures 10.5 x 5.4 cm x 6 cm. Cervix closed and measures 3.5 cm. Normal blood flow to the right ovary. Nonvisualization of the left ovary. Endometrium measures 1.3 cm. Small right ovarian cyst measures 3.9 x 3.9 cm. This is almost certainly benign and no follow-up is recommended. IMPRESSION: Right ovarian cyst which is almost certainly benign and no follow-up is recommended Endometrium measures 1.3 cm.
[2019-12-09 21:35] VITALS: BP 118/70
--- NOTE | 2019-12-10 00:22 | ER Document Report ---
Entered by ELVIA IRAHETA SCRIBE 12/09/192032 Acting as scribe for:LIZZ RAI IV, MD ED GI/ - General Chief Complaint: Vaginal Bleeding Stated Complaint: VAGINAL BLEEDING/CLOTS Time Seen by Provider: 12/09/19 18:31 Primary Care Provider: ELIAS HOFFMAN DO [Primary Care Provider] - Follow up as needed Mode of Arrival: Ambulatory Information source: Patient Notes: This 38 year old female patient presents to the ED today with complaints of irregular menstrual cycle. Patient states that she missed her cycle last month and is now having heavy vaginal bleeding that lasted for x20 days, stopped for x11 days, and now has returned. She reports that she has been passing heavy clots. She notes abdominal cramping. Denies history of irregular periods in the past. Denies any other complaints. She notes that her PCP is at [facility]. TRAVEL OUTSIDE OF THE [place] IN LAST 30 DAYS: No - Related Data Allergies/Adverse Reactions: Sulfa (Sulfonamide Antibiotics) Allergy (Mild, Verified 03/03/18 14:44) rash doxycycline Allergy (Verified 03/03/18 14:44) ketorolac tromethamine [From Toradol] Adverse Reaction (Mild, Verified 03/03/18 14:44) spiders Allergy (Severe, Uncoded 02/27/18 10:50) Seizures latex Allergy (Uncoded 02/27/18 10:50) Home Medications: tyelonol. benydryl. albuterol Past Medical History - General Information source: Patient - Social History Smoking Status: Current Every Day Smoker Cigarette use (# per day): Yes Chew tobacco use (# tins/day): No Smoking Education Provided: No Frequency of alcohol use: Rare Family History: Reviewed & Not Pertinent, Arthritis, CAD, COPD, CVA, DM, Hyperlipidemia, Hypertension, Malignancy Patient has suicidal ideation: No Patient has homicidal ideation: No Pulmonary Medical History: Reports: Hx Asthma, Hx Bronchitis - Bronchitis with bronchospasm, Hx COPD Neurological Medical History: Reports: Hx Migraine Malignancy Medical History: Reports: Hx Skin Cancer Musculoskeletal Medical History: Reports Hx Musculoskeletal Deformity, Reports Hx Musculoskeletal Trauma Skin Medical History: Reports Hx Psoriasis Psychiatric Medical History: Reports: Hx Anxiety, Hx Depression Traumatic Medical History: Reports: Hx Fractures - hand Past Surgical History: Reports: Hx Section - x2, Hx Orthopedic Surgery - lt knee x 4, Hx Tubal Ligation - Immunizations Immunizations up to date: Yes Hx Diphtheria, Pertussis, Tetanus Vaccination: Yes - november 2014 Review of Systems - Review of Systems Constitutional: No symptoms reported EENT: No symptoms reported Cardiovascular: No symptoms reported Respiratory: No symptoms reported Gastrointestinal: See HPI, Abdominal pain Genitourinary: No symptoms reported Female Genitourinary: See HPI, Heavy/abnormal periods, Irregular period, Vaginal bleeding Musculoskeletal: No symptoms reported Skin: No symptoms reported Hematologic/Lymphatic: No symptoms reported Neurological/Psychological: No symptoms reported -: Yes All other systems reviewed and negative Physical Exam - Vital signs Vitals: Temp Pulse Resp BP Pulse Ox 98.4 F 73 16 138/98 H 98 12/09/19 18:31 12/09/19 18:31 12/09/19 18:31 12/09/19 18:31 12/09/19 18:31 - General General appearance: Alert In distress: None - HEENT Head: Normocephalic, Atraumatic Eyes: Normal Pupils: PERRL - Respiratory Respiratory status: No respiratory distress Chest status: Nontender Breath sounds: Normal Chest palpation: Normal - Cardiovascular Rhythm: Regular Heart sounds: Normal auscultation Murmur: No Friction rub: No Gallop: None auscultated - Abdominal Inspection: Normal Distension: No distension Bowel sounds: Normal Tenderness: Nontender - Abdomen soft Organomegaly: No organomegaly - Back Back: Normal, Nontender - Extremities General upper extremity: Normal inspection General lower extremity: Normal inspection - Neurological Neuro grossly intact: Yes Orientation: AAOx4 Lisandra Coma Scale Eye Opening: Spontaneous Lisandra Coma Scale Verbal: Oriented Lisandra Coma Scale Motor: Obeys Commands Patten Coma Scale Total: 15 - Psychological Associated symptoms: Normal affect, Normal mood - Skin Skin Temperature: Warm Skin Moisture: Dry Skin Color: Normal Course - Re-evaluation Re-evalutation: 12/09/19 20:44 Results of ED MSE discussed with patient. All questions were answered prior to discharge. Patient was instructed that if she continues to have bouts of dysfunctional uterine bleeding, she can follow-up with her primary care provider at [place] to see about oral hormone therapy. Emergency signs and symptoms, reasons to return to the emergency department discussed with patient. - Vital Signs Vital signs: Temp Pulse Resp BP Pulse Ox 98.4 F 62 18 118/70 98 12/09/19 21:27 12/09/19 21:27 12/09/19 21:27 12/09/19 21:27 12/09/19 21:27 - Laboratory Result Diagrams: 12/09/19 18:40 12/09/19 18:40 Laboratory results interpreted by me: 12/09/19 12/09/19 18:40 18:40 RDW 14.1 H Sodium 136.9 L - Diagnostic Test Radiology reviewed: Reports reviewed Discharge - Discharge Clinical Impression: Dysfunctional uterine bleeding Condition: Stable Disposition: HOME, SELF-CARE Additional Instructions: Follow-up with your PCP within the next 7 days if your symptoms fail to improve. HOME CARE INSTRUCTIONS & INFORMATION: Thank you for choosing us for your medical needs. We hope you're satisfied with the care you received. After you l eave, you must properly care for your problem and, at the same time, observe its progress. Any condition can change. Some illnesses can change rapidly over hours or days. If your condition worsens, return to the Emergency Department or see your physician promptly. ABOUT YOUR X-RAYS AND EKG'S: If you had an EKG or X-rays taken, they have been read by the Emergency Physician. The X-rays and EKG's will also be read by a Radiologist or Septic Technician within 24 hours. If discrepancies are noted, you will be notified by telephone. Please be certain the ED has a correct telephone number & address where you can be reached. Also, realize that some fractures or abnormalities do not show up on initial X-rays. If your symptoms continue, see your physician. ABOUT YOUR LABORATORY TEST: If you had laboratory tests, the results have been reviewed by the Emergency Physician. Some test results (for example cultures) may not be available for several days. You will be contacted if any test result shows you need additional treatment. Please be certain the ED has a correct telephone number and address where you can be reached. ABOUT YOUR MEDICATIONS: You will receive instructions on how to take your medicine on the prescription label you receive. Additional information may be provided by the Pharmacy. If you have questions afterwards, call the ED for clarification or further instructions. Some prescribed medications may cause drowsiness. Do not perform tasks such as driving a car or operating machinery without consulting your Pharmacist. If you feel you need a refill of pain medication, your condition will need re-evaluation. Please do not call for a refill of any medication. ABOUT YOUR SIGNATURE: Signature of this document acknowledges to followin. Understanding that you received emergency treatment and that you may be released before al medical problems are known or treated. Please be certain the ED has a correct phone number & address where you can be reached. 2. Acknowledgement that you will arrange for follow-up care as recommended. 3. Authorization for the Emergency Physician to provide information to your follow-up Physician in order to maximize your care. AT ANY TIME, IF YOUR SYMPTOMS CHANGE SIGNIFICANTLY OR WORSEN OR YOU DEVELOP NEW SYMPTOMS, RETURN TO THE EMERGENCY DEPARTMENT IMMEDIATELY FOR RE-EVALUATION. OUR GOAL IS TO PROVIDE EXCELLENT MEDICAL CARE! WE HOPE THAT WE HAVE MET YOUR EXPECTATIONS DURING YOUR EMERGENCY DEPARTMENT VISIT AND THAT YOU FEEL YOU HAVE RECEIVED EXCELLENT CARE! Dysfunctional Uterine Bleeding You're having an abnormal pattern of bleeding from the uterus. We call this dysfunctional uterine bleeding. It is most often caused by a hormone imbalance. Most often this is temporary and no cause is found. There's no evidence of , tumors, or infection as a cause. Dysfunctional uterine bleeding is especially common at times when the normal menstrual cycle is disturbed -- whether by recent , use of control pills or hormones, or impending menopause. Some medical problems lead to dysfunctional bleeding, such as obesity or being very underweight, stress, or thyroid problems. In many cases, the menstrual cycle will return to normal without any treatment. Where the bleeding is significant, high-dose estrogen will usually stop the bleeding within a day of two. A cycle or two of hormones ( control pills) can help restore the uterus to normal. In some patients where bleeding is severe or resistant to treatment, a D&C is required. A endometrial biopsy (a sample of the inside of the uterus) may be recommended for some older women. This would be done by a gynecology specialist. Treatment for anemia may be required if bleeding is severe. You should rest and avoid intercourse until the bleeding is controlled. Call the doctor or return for re-examination if you feel faint, have increasing pain, or have a major increase in the amount of bleeding. Referrals: ELIAS HOFFMAN I, DO [Primary Care Provider] - Follow up as needed I personally performed the services described in the documentation, reviewed and edited the documentation which was dictated to the scribe in my presence, and it accurately records my words and actions.
== END 2019-12-09 21:27 | disposition home or self-care (01) ==
LOC: ER 18:25
DX: N93.8 Other specified abnormal uterine and vaginal bleeding (principal); F17.210 Nicotine dependence, cigarettes, uncomplicated; Z88.2 Allergy status to sulfonamides; Z91.040 Latex allergy status
CPT/HCPCS: 36415; 76830; 80053; 84702; 85025; 93976; 99284

== ENCOUNTER 2020-01-25 20:09 | Emergency (ER) | payer SELFPAY ==
--- NOTE | 2020-01-25 20:41 | ER Document Report ---
ED Medical Screen (RME) - General Chief Complaint: Abdominal Pain Stated Complaint: AMDOMINAL PAIN Time Seen by Provider: 01/25/20 20:29 Primary Care Provider: ELIAS HOFFMAN DO [Primary Care Provider] - Follow up as needed Mode of Arrival: Wheelchair Information source: Patient Notes: 39-year-old female presents to ED for complaint of left pelvic pain. She states about a month ago she was told that she had a left ovarian cyst and in July she was told she had a lot of scar tissue in her pelvic area due to her 2 C- sections. She states about 1500 tonight she took her gabapentin that she has ordered for pain and is 1610 she had severe left pelvic pain. She states the pain was so bad that she felt hot and flushed and felt like she was going to pass out so she went into the bedroom in front of the air conditioner and lay down in the center she laid down she vomited a very large amount. She states she stayed laying down until she felt better than she got up and went in the living room. She states that since she got to the couch she felt the same severe pain flushed and she vomited a large amount again. She states she started her last menstrual period about 5 days ago and has been having very heavy bleeding with large clots and she is still having large clots. She states she has a history of ovarian cyst 2 C-sections and a left ACL and meniscus repair x2. She states she smokes half pack a day uses a vapor cigarette and does not drink any more often than every 2 to 3 years. I rechecked her vital signs in the triage area her blood pressure was 122/57 her sat was 100 and pulse was 87. She is nontoxic in appearance but she states she is in a lot of pain. I have greeted and performed a rapid initial assessment of this patient. A c omprehensive ED assessment and evaluation of the patient, analysis of test results and completion of medical decision making process will be conducted by an additional ED providers. TRAVEL OUTSIDE OF THE [place] IN LAST 30 DAYS: No - Related Data Allergies/Adverse Reactions: Sulfa (Sulfonamide Antibiotics) Allergy (Mild, Verified 03/03/18 14:44) rash doxycycline Allergy (Verified 03/03/18 14:44) ketorolac tromethamine [From Toradol] Adverse Reaction (Mild, Verified 03/03/18 14:44) spiders Allergy (Severe, Uncoded 02/27/18 10:50) Seizures latex Allergy (Uncoded 02/27/18 10:50) Past Medical History - Social History Family history: Reviewed & Not Pertinent Pulmonary Medical History: Reports: Hx Asthma, Hx Bronchitis - Bronchitis with bronchospasm, Hx COPD Neurological Medical History: Reports: Hx Migraine Renal/ Medical History: Denies: Hx Peritoneal Dialysis Malignancy Medical History: Reports: Hx Skin Cancer Musculoskeltal Medical History: Reports Hx Musculoskeletal Deformity, Reports Hx Musculoskeletal Trauma Skin Medical History: Reports Hx Psoriasis Psychiatric Medical History: Reports: Hx Anxiety, Hx Depression Traumatic Medical History: Reports: Hx Fractures - hand Past Surgical History: Reports: Hx Section - x2, Hx Orthopedic Surgery - lt knee x 4, Hx Tubal Ligation - Immunizations Immunizations up to date: Yes Hx Diphtheria, Pertussis, Tetanus Vaccination: Yes - november 2014 Physical Exam - Vital signs Vitals: Temp Pulse Resp BP Pulse Ox 98.5 F 89 18 119/57 L 99 01/25/20 20:16 01/25/20 20:16 01/25/20 20:16 01/25/20 20:16 01/25/20 20:16 Course - Vital Signs Vital signs: Temp Pulse Resp BP Pulse Ox 98.5 F 89 18 119/57 L 99 01/25/20 20:16 01/25/20 20:16 01/25/20 20:16 01/25/20 20:16 01/25/20 20:16 Doctor's Discharge - Discharge Referrals: ELIAS HOFFMAN DO [Primary Care Provider] - Follow up as needed
[2020-01-25] MEDS ORDERED: HYDROCODONE/ACETAMINOPHEN 5-325 MG TABLET PO ONE (20:43)
[2020-01-25 21:21] LABS: ABSOLUTE BASOPHILS # (AUTO) 0.1 10^3/uL (0.0-0.2); ABSOLUTE EOSINOPHILS # (AUTO) 0.2 10^3/uL (0.0-0.6); ABSOLUTE LYMPHOCYTES (AUTO) 2.8 10^3/uL (0.5-4.7); ABSOLUTE MONOCYTES (AUTO) 0.6 10^3/uL (0.1-1.4); ABSOLUTE NEUT (AUTO) 7.3 10^3/uL (1.7-8.2); BASOPHILS % (AUTO) 0.6 % (0-2); EOSINOPHILS % (AUTO) 1.7 % (0-6); HEMATOCRIT 27.9 % (36.0-47.0); HEMOGLOBIN 9.3 g/dL (12.0-15.5); LYMPHOCYTES % (AUTO) 25.5 % (13-45); MEAN CORPUSCULAR HEMOGLOBIN 26.4 pg (27.0-33.4); MEAN CORPUSCULAR HGB CONC 33.1 g/dL (32.0-36.0); MEAN CORPUSCULAR VOLUME 80 fl (80-97); MONOCYTES % (AUTO) 5.7 % (3-13); PLATELET COUNT 333 10^3/uL (150-450); RED BLOOD COUNT 3.51 10^6/uL (3.72-5.28); RED CELL DISTRIBUTION WIDTH 17.3 % (11.5-14.0); SEGMENTED NEUTROPHILS % (AUTO) 66.5 % (42-78); TOTAL CELLS COUNTED % (AUTO) 100 %; WHITE BLOOD COUNT 10.9 10^3/uL (4.0-10.5)
[2020-01-25 21:38] LABS: ALBUMIN 3.9 g/dL (3.5-5.0); ALKALINE PHOSPHATASE 72 U/L (38-126); ANION GAP 7 (5-19); ASPARTATE AMINO TRANSFERASE 23 U/L (14-36); BILIRUBIN,DIRECT 0.3 mg/dL (0.0-0.4); BILIRUBIN,TOTAL 0.4 mg/dL (0.2-1.3); BLOOD UREA NITROGEN 7 mg/dL (7-20); CARBON DIOXIDE 25 mmol/L (22-30); CHLORIDE 106 mmol/L (98-107); GLUCOSE 90 mg/dL (75-110); POTASSIUM 3.5 mmol/L (3.6-5.0); TOTAL PROTEIN 6.5 g/dL (6.3-8.2)
--- NOTE | 2020-01-25 22:01 | RADIOLOGY REPORT (SQ) ---
Ultrasound pelvis transvaginal on 01/25/2020 at 9:12 PM CLINICAL INDICATION: Left pelvic pain, vaginal bleeding, history of ovarian cyst COMPARISON: None FINDINGS: Multiple sonographic images are obtained throughout the pelvis by transabdominal and transvaginal approach, both transverse and sagittal images are obtained. The uterus measures approximately 8.6 x 3.9 x 5.3 cm. The transvaginal imaging is somewhat limited due to the patient's full urinary bladder. Endometrial stripe measures approximately 1.4 cm which is within normal limits. Uterine myometrium appears homogeneous. Right ovary measures approximately 4.4 x 3.7 x 3.5 cm. Within the right ovary there is a 2.8 x 3.6 x 3.3 cm simple right ovarian cyst which should be considered benign with no follow-up recommended. Flow is demonstrated within the right ovary. Left ovary measures approximately 2.2 x 2.3 x 1.9 cm. Flow is demonstrated in the left ovary. No adnexal mass or fluid collection is noted. No free fluid is noted. IMPRESSION: Essentially unremarkable exam.
[2020-01-25] MEDS ORDERED: NORMAL SALINE 1000 ML 1,000 ML IV ONE (23:24)
--- NOTE | 2020-01-25 23:32 | ER Document Report ---
ED General - General Chief Complaint: Abdominal Pain Stated Complaint: AMDOMINAL PAIN Time Seen by Provider: 01/25/20 20:29 Primary Care Provider: ELIAS HOFFMAN DO [NO LOCAL MD] - Follow up as needed Mode of Arrival: Wheelchair TRAVEL OUTSIDE OF THE [place] IN LAST 30 DAYS: No - HPI Notes: Patient is a 39-year-old female who presents to the emergency department for evaluation. She has had left pelvic pain for the last 2 to 3 months. She was diagnosed with a left ovarian cyst. She was recently started on Neurontin for it. She states that tonight while at rest her pain became severe. She became very diaphoretic, dizzy, and then vomited. This happened twice. She also states she is currently on her menstrual period. She states this 1 seems to be exceptionally heavy. She states she is gone through 5 pads so far today. She states she has not urinated once today. She denies any vaginal discharge. No history of STDs. She is in a monogamous relationship with her . - Related Data Allergies/Adverse Reactions: Sulfa (Sulfonamide Antibiotics) Allergy (Mild, Verified 03/03/18 14:44) rash doxycycline Allergy (Verified 03/03/18 14:44) ketorolac tromethamine [From Toradol] Adverse Reaction (Mild, Verified 03/03/18 14:44) spiders Allergy (Severe, Uncoded 02/27/18 10:50) Seizures latex Allergy (Uncoded 02/27/18 10:50) Past Medical History - General Information source: Patient - Social History Smoking Status: Current Every Day Smoker Family History: Reviewed & Not Pertinent, Arthritis, CAD, COPD, CVA, DM, Hyperlipidemia, Hypertension, Malignancy Pulmonary Medical History: Reports: Hx Asthma, Hx Bronchitis - Bronchitis with bronchospasm, Hx COPD Neurological Medical History: Reports: Hx Migraine Renal/ Medical History: Denies: Hx Peritoneal Dialysis Malignancy Medical History: Reports: Hx Skin Cancer Musculoskeletal Medical History: Reports Hx Musculoskeletal Deformity, Reports Hx Musculoskeletal Trauma Skin Medical History: Reports Hx Psoriasis Psychiatric Medical History: Reports: Hx Anxiety, Hx Depression Traumatic Medical History: Reports: Hx Fractures - hand Past Surgical History: Reports: Hx Section - x2, Hx Orthopedic Surgery - lt knee x 4, Hx Tubal Ligation - Immunizations Immunizations up to date: Yes Hx Diphtheria, Pertussis, Tetanus Vaccination: Yes - november 2014 Review of Systems - Review of Systems Constitutional: See HPI EENT: No symptoms reported Cardiovascular: See HPI Respiratory: No symptoms reported Gastrointestinal: See HPI Genitourinary: No symptoms reported Female Genitourinary: See HPI Musculoskeletal: No symptoms reported Skin: No symptoms reported Neurological/Psychological: No symptoms reported Physical Exam - Vital signs Vitals: Temp Pulse Resp BP Pulse Ox 98.5 F 89 18 119/57 L 99 01/25/20 20:16 01/25/20 20:16 01/25/20 20:16 01/25/20 20:16 01/25/20 20:16 - Notes Notes: This is a 39-year-old female, who smells strongly of cigarette smoke, who appears her stated age, no acute distress. Vital signs reviewed, please refer to chart. Head is normocephalic, atraumatic. Pupils equal round, reactive to light. Neck is supple without meningismus. Heart is regular rate and rhythm. Lungs are clear to auscultation bilaterally. Abdomen is soft, nontender, normoactive bowel sounds throughout. Extremities without cyanosis, clubbing. Posterior calves are nontender. Peripheral pulses are equal. Skin is warm and dry. Patient is awake, alert, neurological exam is nonfocal. Course - Re-evaluation Re-evalutation: 01/25/20 23:31 Patient presents to the emergency department for evaluation. She laboratory vesication's and imaging is ordered through triage. Laboratory investigations did confirm an anemia of 9.3, which is a significant change from prior. I suspect this is from menorrhagia, as the patient denies any melena, hematochezia, or hematemesis. Unfortunately, the patient is over 35, is a smoker, she is not a candidate for oral contraceptives to help her with her heavy menstrual bleeding. Transvaginal ultrasound was entirely unremarkable. The patient does admit that she has constipation, states she only has bowel movements once or twice a month. I reviewed the rest of her labs, they are unremarkable. I am still awaiting her urinalysis. I did order a urine drug screen as well. The patient states she still cannot urinate, so a liter of IV saline is ordered. Patient is stable, we will continue to monitor. 01/26/20 01:33 Patient's KUB shows significant constipation. Her urine drug screen shows opiates, and she was only given Percocet here, which did not show up in a drug screen. I do have some suspicion of drug-seeking behavior in this patient. At any rate, this is become a chronic issue. She is already on Neurontin for it. I will treat her constipation which may be contributing to her pain. Otherwise I do not have a high suspicion for another significant intra-abdominal process. We will treat her with magnesium citrate. Will refer her onto [facility]. She is to return to the ED with worsening or new concerning symptoms of any sort. - Vital Signs Vital signs: Temp Pulse Resp BP Pulse Ox 98.1 F 56 L 18 120/69 99 01/26/20 00:49 01/26/20 00:49 01/26/20 00:49 01/26/20 00:49 01/26/20 00:49 - Laboratory Result Diagrams: 01/25/20 21:01 01/25/20 21:01 Laboratory results interpreted by me: 01/25/20 01/25/20 01/25/20 21:01 21:01 23:45 WBC 10.9 H RBC 3.51 L Hgb 9.3 L Hct 27.9 L MCH 26.4 L RDW 17.3 H Potassium 3.5 L Urine Blood LARGE H Urine Urobilinogen 2.0 H - Diagnostic Test Radiology reviewed: Image reviewed, Reports reviewed Radiology results interpreted by me: 01/26/20 01:33 Transvaginal US 01/25/20 20:37 IMPRESSION: Essentially unremarkable exam. KUB X-Ray 01/25/20 23:25 IMPRESSION: Significant hard stool within the colon, particularly in the region of splenic flexure. Discharge - Discharge Clinical Impression: Left lower quadrant pain Menorrhagia Qualifiers: Menorrhagia type: with regular cycle Qualified Code(s): N92.0 - Excessive and frequent menstruation with regular cycle Constipation Qualifiers: Constipation type: unspecified constipation type Qualified Code(s): K59.00 - Constipation, unspecified Condition: Stable Disposition: HOME, SELF-CARE Instructions: Abdominal Pain ([facility]), Constipation ([facility]), Menorrhagia ([facility]) Additional Instructions: Take magnesium citrate at home to help with her constipation. Continue your Neurontin for your chronic pain. You should try [id number] iron supplements to help with your anemia. Try to quit smoking. Follow-up with OB in regards to your heavy menstruation. Return to the emergency department with worsening or new concerning symptoms of any sort. Referrals: ELIAS HOFFMAN I, [NO LOCAL MD] - Follow up as needed DARIUS ROSE MD [ACTIVE PROVISIONAL STAFF] - Follow up as needed
[2020-01-25] MEDS ORDERED: OXYCODONE-ACETAMINOPHEN 5-325 MG TABLET PO ONE (23:52)
[2020-01-26 00:17] LABS: URINE AMPHETAMINES SCREEN NEGATIVE; URINE BARBITURATES SCREEN NEGATIVE; URINE BENZODIAZEPINES SCREEN NEGATIVE; URINE COCAINE SCREEN NEGATIVE; URINE MARIJUANA (THC) SCREEN NEGATIVE; URINE METHADONE SCREEN NEGATIVE; URINE PHENCYCLIDINE SCREEN NEGATIVE
--- NOTE | 2020-01-26 00:39 | RADIOLOGY REPORT (SQ) ---
CLINICAL INDICATION: constipation, LLQ pain. TECHNIQUE: Single supine image(s) of the abdomen. COMPARISON: None. FINDINGS: Significant hard stool within the colon particularly in the region of splenic flexure. No evidence of high grade obstruction. No obvious free air on this supine image. Levoconvex curvature of the lumbar spine. Osteoarthritis. IMPRESSION: Significant hard stool within the colon, particularly in the region of splenic flexure.
[2020-01-26 00:55] LABS: APPEARANCE,URINE SLIGHTLY-CLOUDY; BILIRUBIN,URINE NEGATIVE (NEGATIVE); COLOR,URINE YELLOW; GLUCOSE, URINE NEGATIVE (NEGATIVE); KETONES,URINE NEGATIVE (NEGATIVE); LEUKOCYTE ESTERASE,URINE NEGATIVE (NEGATIVE); NITRITE,URINE NEGATIVE (NEGATIVE); PROTEIN,URINE NEGATIVE (NEGATIVE); URINE SPECIFIC GRAVITY 1.013
[2020-01-26] MEDS ORDERED: MAGNESIUM CITRATE 296 ML BOTTLE PO ONE (01:26)
[2020-01-26 01:50] VITALS: BP 122/71
== END 2020-01-26 01:50 | disposition home or self-care (01) ==
LOC: ER 20:09
DX: K59.00 Constipation, unspecified (principal); N92.0 Excessive and frequent menstruation with regular cycle; D64.9 Anemia, unspecified; N83.202 Unspecified ovarian cyst, left side; R61 Generalized hyperhidrosis; R11.10 Vomiting, unspecified; R42 Dizziness and giddiness; F17.200 Nicotine dependence, unspecified, uncomplicated; J45.909 Unspecified asthma, uncomplicated; Z91.040 Latex allergy status; Z88.2 Allergy status to sulfonamides; Z88.1 Allergy status to other antibiotic agents; Z91.038 Other insect allergy status
CPT/HCPCS: 99285; 96360; 36415; 87086; 84703; 85025; 80053; 81001; 80307; 74018; 76830; J3490; J7030

== ENCOUNTER 2020-02-28 13:45 | Emergency (ER) | payer SELFPAY ==
[2020-02-28 13:50] VITALS: BP 130/64
[2020-02-28] MEDS ORDERED: HYDROCODONE/ACETAMINOPHEN 5-325 MG TABLET PO ONE (14:00)
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
--- NOTE | 2020-02-28 18:16 | EKG REPORT ---
SEVERITY:- NORMAL ECG - SINUS RHYTHM : Confirmed by: Bob Sales MD 28-Feb-2020 18:15:35
== END 2020-02-28 14:55 | disposition home or self-care (01) ==
LOC: ER 13:45
DX: R07.89 Other chest pain (principal); R06.00 Dyspnea, unspecified; V89.2XXA Person injured in unspecified motor-vehicle accident, traffic, initial encounter; Y92.414 Local residential or business street as the place of occurrence of the external cause; F17.200 Nicotine dependence, unspecified, uncomplicated; Z88.6 Allergy status to analgesic agent; Z91.040 Latex allergy status
CPT/HCPCS: 71046; 93005; 93010; 99284

== ENCOUNTER 2020-03-27 08:19 | Emergency (ER) | payer OTHER ==
--- NOTE | 2020-03-27 09:00 | ER Document Report ---
ED Extremity Problem, Lower - General Stated Complaint: RIGHT FOOT INJURY Time Seen by Provider: 03/27/20 08:58 Primary Care Provider: SHAYNE CHÁVEZ MD [NO LOCAL MD] - Follow up as needed Notes: CHIEF COMPLAINT: Right foot injury HPI: 39-year-old female presenting for right foot injury. Was at work and a large metal container dropped from a table onto her foot. Denies numbness or tingling complains of pain to the foot. ROS: See HPI - all other systems were reviewed and are otherwise negative Constitutional: no fever Integumentary: no rash Allergy: no hives Musculoskeletal: + extremity pain or swelling Neurological: no numbness/tingling, no weakness MEDICATIONS: I agree with the patient medications as charted by the RN. ALLERGIES: I agree with the allergies as charted by the RN. PAST MEDICAL HISTORY/PAST SURGICAL HISTORY: Reviewed and agree as charted by RN. SOCIAL HISTORY: Reviewed and agree as charted by RN. FAMILY HISTORY: No significant familial comorbid conditions directly related to patient complaint EXAM: Reviewed vital signs as charted by RN. CONSTITUTIONAL: Alert and oriented and responds appropriately to questions. Well-appearing; well-nourished HEAD: Normocephalic; atraumatic EYES: Conjunctivae clear, sclerae non-icteric ENT: normal nose; no rhinorrhea; moist mucous membranes NECK: Supple without meningismus CARD: symmetric distal pulses RESP: Normal chest excursion without splinting or tachypnea ABD/GI: non-distended BACK: The back appears normal EXT: Normal ROM in all joints; no cyanosis, no effusions, no edema. There is tenderness over the dorsal aspect of the distal right foot with slight bruising and soft tissue swelling present dorsally. Dorsalis pedis and posterior tibial pulses are present in the right foot and ankle. Sensation intact in the toes with capillary refill less than 3 seconds. No tenderness over the medial or lateral malleolus of the right ankle. SKIN: Normal color for age and race; warm; dry; good turgor; no acute lesions noted NEURO: Moves all extremities equally; Motor and sensory function intact PSYCH: The patient's mood and manner are appropriate. Grooming and personal hygiene are appropriate. MDM: 39-year-old female with a contusion/crush type injury to the foot from a metal object dropping from a table onto the foot. Will obtain x-ray for fracture TRAVEL OUTSIDE OF THE [place] IN LAST 30 DAYS: No - Related Data Allergies/Adverse Reactions: Sulfa (Sulfonamide Antibiotics) Allergy (Mild, Verified 02/28/20 13:56) rash doxycycline Allergy (Verified 02/28/20 13:56) ibuprofen Allergy (Verified 02/28/20 13:56) ketorolac tromethamine [From Toradol] Adverse Reaction (Mild, Verified 02/28/20 13:56) spiders Allergy (Severe, Uncoded 02/27/18 10:50) Seizures latex Allergy (Uncoded 02/27/18 10:50) Past Medical History - Social History Smoking Status: Unknown if Ever Smoked Family History: Reviewed & Not Pertinent, Arthritis, CAD, COPD, CVA, DM, Hyperlipidemia, Hypertension, Malignancy Pulmonary Medical History: Reports: Hx Asthma, Hx Bronchitis - Bronchitis with bronchospasm, Hx COPD Neurological Medical History: Reports: Hx Migraine Renal/ Medical History: Denies: Hx Peritoneal Dialysis Malignancy Medical History: Reports: Hx Skin Cancer Musculoskeletal Medical History: Reports Hx Musculoskeletal Deformity, Reports Hx Musculoskeletal Trauma Skin Medical History: Reports Hx Psoriasis Psychiatric Medical History: Reports: Hx Anxiety, Hx Depression Traumatic Medical History: Reports: Hx Fractures - hand Past Surgical History: Reports: Hx Section - x2, Hx Orthopedic Surgery - lt knee x 4, Hx Tubal Ligation - Immunizations Immunizations up to date: Yes Hx Diphtheria, Pertussis, Tetanus Vaccination: Yes - november 2014 Physical Exam - Vital signs Vitals: Temp Pulse Resp BP Pulse Ox 97.8 F 70 17 132/80 H 97 03/27/20 08:45 03/27/20 08:45 03/27/20 08:45 03/27/20 08:45 03/27/20 08:45 Course - Re-evaluation Re-evalutation: 03/27/20 09:20 On my review of the patient x-ray I do not visualize a fracture in the area of her discomfort which is the distal third and fourth metatarsals. We will place her in a postop shoe refer to orthopedics - Vital Signs Vital signs: Temp Pulse Resp BP Pulse Ox 97.8 F 70 17 132/80 H 97 03/27/20 08:45 03/27/20 08:45 03/27/20 08:45 03/27/20 08:45 03/27/20 08:45 Procedures - Immobilization Right Foot Time completed: 09:21 Pre-Proc Neuro Vasc Exam: Normal Immobilizer type: Post-op shoe Performed by: PCT Post-Proc Neuro Vasc Exam: Normal, Unchanged from pre-exam Alignment checked and good: Yes Discharge - Discharge Clinical Impression: Contusion of foot, right Qualifiers: Encounter type: initial encounter Qualified Code(s): S90.31XA - Contusion of right foot, initial encounter Condition: Stable Disposition: HOME, SELF-CARE Instructions: Contusion ([facility]) Additional Instructions: 1. ice and elevate the lower extremity as much as possible 2. utilize the crutches as instructed, weightbearing as tolerated 3. medications for pain as prescribed, no driving on narcotics 4. follow up with orthopedics for further evaluation and treatment, call for appt. Prescriptions: Hydrocodone/Acetaminophen [[place] 5-325 mg Tablet] 1 tab PO Q4 PRN #10 tablet PRN Reason: Diclofenac Sodium [Voltaren 50 Mg Tablet.] 50 mg PO BID #20 tablet. Referrals: SHAYNE CHÁVEZ MD [NO LOCAL MD] - Follow up as needed VIANEY MEDINA DO [ACTIVE STAFF] - Follow up as needed
[2020-03-27] MEDS ORDERED: HYDROCODONE/ACETAMINOPHEN 5-325 MG TABLET PO ONE (09:13)
--- NOTE | 2020-03-27 09:33 | RADIOLOGY REPORT (SQ) ---
EXAM DESCRIPTION: FOOT RIGHT COMPLETE IMAGES COMPLETED DATE/TIME: 03/27/2020 9:22 am REASON FOR STUDY: trauma COMPARISON: 02/25/2016 NUMBER OF VIEWS: Three views. TECHNIQUE: AP, lateral and oblique radiographic images acquired of the right foot. LIMITATIONS: None. FINDINGS: MINERALIZATION: Normal. BONES: No acute fracture or dislocation. No worrisome bone lesions. JOINTS: No effusions. SOFT TISSUES: No soft tissue swelling. No foreign body. OTHER: Small calcaneal spurs are noted. IMPRESSION: NEGATIVE STUDY OF THE RIGHT FOOT. NO RADIOGRAPHIC EVIDENCE OF ACUTE INJURY. TECHNICAL DOCUMENTATION: JOB ID: [id number] 2010 [employer]- All Rights Reserved Reading location - IP/workstation name: [email or web address]
[2020-03-27 09:49] VITALS: BP 128/82
== END 2020-03-27 09:47 | disposition home or self-care (01) ==
LOC: ER 08:19
DX: S90.31XA Contusion of right foot, initial encounter (principal); W22.8XXA Striking against or struck by other objects, initial encounter; Z88.2 Allergy status to sulfonamides; Z88.8 Allergy status to other drugs, medicaments and biological substances; J44.9 Chronic obstructive pulmonary disease, unspecified
CPT/HCPCS: 99284

== ENCOUNTER 2020-04-23 20:43 | Emergency (ER) | payer SELFPAY ==
--- NOTE | 2020-04-23 22:03 | ER Document Report ---
ED Medical Screen (RME) - General Chief Complaint: Vaginal Bleeding Stated Complaint: VAGINAL BLEEDING, DIZZINESS, SOB Time Seen by Provider: 04/23/20 21:58 Mode of Arrival: Wheelchair Information source: Patient Notes: Patient is a 39-year-old female comes emergency room stating that she has been having abnormal. Bleeding for the past 25 days. Patient states is also been short of breath with headache. She states in the 25 days she is gone through 75 thick female pads and she is passing severely large clots of blood. Patient states she has not followed up with anybody because they do not have currently insurance but she is here tonight because he is getting weak and fatigued with the shortness of breath. Patient denies any current contact with any Covid positive people. She states that she is not working currently she does admit to smoking. Has a history of asthma and feels like she is also wheezing according to patient. She has had a tubal ligation in the past. Physical examination shows patient to be well-nourished well-developed 39-year-old female in no apparent distress on examination this evening but does appear uncomfortable and slightly agitated. Cardiac: Patient shows a regular rate and rhythm 94 bpm on monitor with no murmurs auscultated. Patient's blood pressure is 125/59. Lungs: Bilateral breath sounds with breath sounds decreased throughout with end expiratory wheeze noted on the right versus the left. Next Abdomen: Bowel sounds present 4 quads patient is slightly tender suprapubically to palpation. I have greeted and performed a rapid initial assessment of this patient. A comprehensive ED assessment and evaluation of the patient, analysis of test results and completion of the medical decision making process will be conducted by additional ED providers. Dictation of this chart was performed using voice recognition software; therefore, there may be some unintended grammatical errors. TRAVEL OUTSIDE OF THE [place] IN LAST 30 DAYS: No - Related Data Allergies/Adverse Reactions: Sulfa (Sulfonamide Antibiotics) Allergy (Mild, Verified 04/23/20 21:54) rash doxycycline Allergy (Verified 04/23/20 21:54) ibuprofen Allergy (Verified 04/23/20 21:54) ketorolac tromethamine [From Toradol] Adverse Reaction (Mild, Verified 04/23/20 21:54) spiders Allergy (Severe, Uncoded 02/27/18 10:50) Seizures latex Allergy (Uncoded 02/27/18 10:50) Home Medications: GABAPENTIN Past Medical History - Social History Frequency of alcohol use: None Drug Abuse: None Family history: Reviewed & Not Pertinent Pulmonary Medical History: Reports: Hx Asthma, Hx Bronchitis - Bronchitis with bronchospasm, Hx COPD Neurological Medical History: Reports: Hx Migraine Renal/ Medical History: Denies: Hx Peritoneal Dialysis Malignancy Medical History: Reports: Hx Skin Cancer Musculoskeltal Medical History: Reports Hx Musculoskeletal Deformity, Reports Hx Musculoskeletal Trauma Skin Medical History: Reports Hx Psoriasis Psychiatric Medical History: Reports: Hx Anxiety, Hx Depression Traumatic Medical History: Reports: Hx Fractures - hand Past Surgical History: Reports: Hx Section - x2, Hx Orthopedic Surgery - lt knee x 4, Hx Tubal Ligation - Immunizations Immunizations up to date: Yes Hx Diphtheria, Pertussis, Tetanus Vaccination: Yes - november 2014 Physical Exam - Vital signs Vitals: Temp Pulse Resp BP Pulse Ox 98.5 F 94 18 125/59 L 100 04/23/20 21:12 04/23/20 21:12 04/23/20 21:12 04/23/20 21:12 04/23/20 21:12 Course - Vital Signs Vital signs: Temp Pulse Resp BP Pulse Ox 98.5 F 94 18 125/59 L 100 04/23/20 21:12 04/23/20 21:12 04/23/20 21:12 04/23/20 21:12 04/23/20 21:12
[2020-04-23 22:57] LABS: ABSOLUTE BASOPHILS # (AUTO) 0.1 10^3/uL (0.0-0.2); ABSOLUTE EOSINOPHILS # (AUTO) 0.5 10^3/uL (0.0-0.6); ABSOLUTE LYMPHOCYTES (AUTO) 3.9 10^3/uL (0.5-4.7); ABSOLUTE NEUT (AUTO) 7.4 10^3/uL (1.7-8.2); BASOPHILS % (AUTO) 0.5 % (0-2); EOSINOPHILS % (AUTO) 3.8 % (0-6); HEMATOCRIT 21.7 % (36.0-47.0); LYMPHOCYTES % (AUTO) 30.1 % (13-45); MEAN CORPUSCULAR HEMOGLOBIN 19.3 pg (27.0-33.4); MEAN CORPUSCULAR HGB CONC 30.1 g/dL (32.0-36.0); MONOCYTES % (AUTO) 7.8 % (3-13); PLATELET COUNT 274 10^3/uL (150-450); RED BLOOD COUNT 3.38 10^6/uL (3.72-5.28); RED CELL DISTRIBUTION WIDTH 19.1 % (11.5-14.0); SEGMENTED NEUTROPHILS % (AUTO) 57.8 % (42-78); TOTAL CELLS COUNTED % (AUTO) 100 %; WHITE BLOOD COUNT 12.8 10^3/uL (4.0-10.5)
--- NOTE | 2020-04-23 22:59 | RADIOLOGY REPORT (SQ) ---
Ultrasound of the pelvis: 04/23/2020 9:56 PM MEDICAL COLLECTIONS REPRESENTATIVE HISTORY: 39-year-old patient with dysfunctional uterine bleeding. TECHNIQUE: Multiple grayscale and color Doppler images of the pelvis were obtained transabdominally and transvaginally. COMPARISON: None available FINDINGS: The uterus measures 11.1 x 5.5 x 4.8 cm. The endometrium measures 20 mm in thickness. The cervix measures at least 3.7 cm in length. No myometrial mass is seen. The right ovary measures 4.4 x 3.2 x 3.7 cm. There is a probable physiologic cysts within the right ovary measuring up to 3.8 cm. The left ovary was not visualized and is likely scarred by overlying bowel gas. No free intraperitoneal fluid is seen within the posterior cul-de-sac. IMPRESSION: No acute sonographic abnormality is seen within the pelvis. The left ovary is not well visualized.
[2020-04-23 23:15] LABS: ALKALINE PHOSPHATASE 68 U/L (38-126); ANION GAP 9 (5-19); ASPARTATE AMINO TRANSFERASE 24 U/L (14-36); BILIRUBIN,DIRECT 0.1 mg/dL (0.0-0.4); BILIRUBIN,TOTAL 0.3 mg/dL (0.2-1.3); BLOOD UREA NITROGEN 9 mg/dL (7-20); CALCIUM 9.6 mg/dL (8.4-10.2); CARBON DIOXIDE 24 mmol/L (22-30); CHLORIDE 105 mmol/L (98-107); GLUCOSE 84 mg/dL (75-110); POTASSIUM 3.5 mmol/L (3.6-5.0); TOTAL PROTEIN 6.6 g/dL (6.3-8.2)
--- NOTE | 2020-04-23 23:28 | RADIOLOGY REPORT (SQ) ---
EXAM DESCRIPTION: XR CHEST 1 VIEW COMPLETED DATE/TME: 04/23/2020 23:06 CLINICAL HISTORY: 39 years, Female, SOB COMPARISON: March 03, 2018 NUMBER OF VIEWS: 1 TECHNIQUE: Single PA view of the chest was obtained at 11:07 PM. LIMITATIONS: None. FINDINGS: The heart size is within normal limits. Lungs appear clear of active disease. Small calcified granuloma is again noted within the periphery of the right midlung zone. There is no evidence of pleural effusion or pneumothorax. No definite acute bony abnormality is seen. IMPRESSION: No acute abnormality as above. copyright 2010 [employer]- All Rights Reserved
[2020-04-23 23:45] LABS: ANISOCYTOSIS 2+; HYPOCHROMASIA 2+; OVALOCYTES SLIGHT; POIKILOCYTOSIS SLIGHT; POLYCHROMASIA 1+; TEAR DROP CELLS SLIGHT; TOXIC GRANULATION 1+
[2020-04-23 23:46] LABS: MEAN CORPUSCULAR VOLUME 64 fl (80-97); PLATELET COMMENT ADEQUATE; SCHISTOCYTES SLIGHT
[2020-04-23 23:47] LABS: HEMOGLOBIN 6.5 g/dL (12.0-15.5)
[2020-04-24 01:33] LABS: APPEARANCE,URINE SLIGHTLY-CLOUDY; BILIRUBIN,URINE NEGATIVE (NEGATIVE); COLOR,URINE YELLOW; GLUCOSE, URINE NEGATIVE (NEGATIVE); KETONES,URINE NEGATIVE (NEGATIVE); LEUKOCYTE ESTERASE,URINE NEGATIVE (NEGATIVE); NITRITE,URINE NEGATIVE (NEGATIVE); PROTEIN,URINE NEGATIVE (NEGATIVE); URINE SPECIFIC GRAVITY 1.008; UROBILINOGEN,URINE NEGATIVE mg/dL (<2.0)
[2020-04-24 01:43] LABS: URINE AMPHETAMINES SCREEN NEGATIVE; URINE BARBITURATES SCREEN NEGATIVE; URINE BENZODIAZEPINES SCREEN NEGATIVE; URINE COCAINE SCREEN NEGATIVE; URINE MARIJUANA (THC) SCREEN NEGATIVE; URINE METHADONE SCREEN NEGATIVE; URINE PHENCYCLIDINE SCREEN NEGATIVE
[2020-04-24] MEDS ORDERED: NORMAL SALINE 250 ML IV PRN ×2 (01:56)
[2020-04-24] MEDS ORDERED: ACETAMINOPHEN 325 MG TABLET PO ONE (02:00)
--- NOTE | 2020-04-24 02:03 | ER Document Report ---
ED General - General Chief Complaint: Vaginal Bleeding Stated Complaint: VAGINAL BLEEDING, DIZZINESS, SOB Time Seen by Provider: 04/23/20 21:58 Primary Care Provider: SHAYNE CHÁVEZ MD [Primary Care Provider] - Follow up as needed Mode of Arrival: Wheelchair TRAVEL OUTSIDE OF THE [place] IN LAST 30 DAYS: No - HPI Notes: Patient is a 39-year-old female who presents the emergency department for evaluation of heavy and prolonged vaginal bleeding. Is been ongoing for some time. She was actually seen in the past for this, did not follow-up with anyone because she does not have insurance. She did follow-up with [facility], she states they started her on Neurontin for her cramping. She states now she short of breath with exertion, has a headache, occasional dizziness. - Related Data Allergies/Adverse Reactions: Sulfa (Sulfonamide Antibiotics) Allergy (Mild, Verified 04/23/20 21:54) rash doxycycline Allergy (Verified 04/23/20 21:54) ibuprofen Allergy (Verified 04/23/20 21:54) ketorolac tromethamine [From Toradol] Adverse Reaction (Mild, Verified 04/23/20 21:54) spiders Allergy (Severe, Uncoded 02/27/18 10:50) Seizures latex Allergy (Uncoded 02/27/18 10:50) Home Medications: GABAPENTIN Past Medical History - General Information source: Patient - Social History Smoking Status: Current Every Day Smoker Frequency of alcohol use: None Drug Abuse: None Family History: Reviewed & Not Pertinent, Arthritis, CAD, COPD, CVA, DM, Hyperlipidemia, Hypertension, Malignancy Pulmonary Medical History: Reports: Hx Asthma, Hx Bronchitis - Bronchitis with bronchospasm, Hx COPD Neurological Medical History: Reports: Hx Migraine Renal/ Medical History: Denies: Hx Peritoneal Dialysis Malignancy Medical History: Reports: Hx Skin Cancer Musculoskeletal Medical History: Reports Hx Musculoskeletal Deformity, Reports Hx Musculoskeletal Trauma Skin Medical History: Reports Hx Psoriasis Psychiatric Medical History: Reports: Hx Anxiety, Hx Depression Traumatic Medical History: Reports: Hx Fractures - hand Past Surgical History: Reports: Hx Section - x2, Hx Orthopedic Surgery - lt knee x 4, Hx Tubal Ligation - Immunizations Immunizations up to date: Yes Hx Diphtheria, Pertussis, Tetanus Vaccination: Yes - november 2014 Review of Systems - Review of Systems Constitutional: See HPI EENT: No symptoms reported Cardiovascular: No symptoms reported Respiratory: See HPI Gastrointestinal: No symptoms reported Genitourinary: No symptoms reported Female Genitourinary: See HPI Musculoskeletal: No symptoms reported Skin: No symptoms reported Neurological/Psychological: No symptoms reported -: Yes All other systems reviewed and negative Physical Exam - Vital signs Vitals: Temp Pulse Resp BP Pulse Ox 98.5 F 94 18 125/59 L 100 04/23/20 21:12 04/23/20 21:12 04/23/20 21:12 04/23/20 21:12 04/23/20 21:12 - Notes Notes: Vital signs reviewed, please refer to chart. Head is normocephalic, atraumatic. Pupils equal round, reactive to light. Conjunctive are pale. Neck is supple without meningismus. Heart is regular rate and rhythm. Lungs are clear to auscultation bilaterally. Abdomen is soft, nontender, normoactive bowel sounds throughout. Extremities without cyanosis, clubbing. Posterior calves are nontender. Peripheral pulses are equal. Skin is warm and dry. Patient is awake, alert, oriented x3. Cranial nerves II - XII are grossly intact without focal neurological deficits. Strength is plus 5 out of 5 bilateral upper and lower extremities. Sensation is intact. Reflexes symmetrical. Intact [id number], rapid alternating movements, [id number]. Pelvic exam performed with TRAVIS King, present as dinkey operator slag. Normal external genitalia. A small amount of dried blood noted Externally. Normal vaginal mucosa. Cervix is closed, no lesions. Very minimal blood noted. Course - Re-evaluation Re-evalutation: 04/24/20 02:01 Patient presents to the emergency department for evaluation. She was seen for menometrorrhagia in the past, did not follow-up with SURGICAL MANAGER. Her hemoglobin is now 6.5. Ordered for transfusion of a unit of blood is placed. I will perform pelvic exam. Otherwise remainder of her testing is largely unremarkable. Will contact gynecology for further advice and evaluation. Otherwise, patient states she has been taking vitamins, but I do believe she needs more significant iron supplementation. We will discussed this with SURGICAL MANAGER as well. 04/24/20 04:[address] Louise Hernández, on-call SURGICAL MANAGER regarding this patient. She recommends Provera. We will start the patient on this here. During the blood transfusion, the patient did become nauseated. Her vitals were checked and they were unremarkable. She does actually feel slightly better. I will go ahead and continue the blood transfusion, she was treated with Zofran. 04/24/20 05:35 Patient remains stable. She is continuing to receive the blood transfusion without complication or difficulty. She does have a continued headache I will give her 1 [place]. I will send her home with a Provera. She is given referral onto OB, is to return to the ED with worsening. - Vital Signs Vital signs: Temp Pulse Resp BP Pulse Ox 98.1 F 79 17 111/66 100 04/24/20 03:41 04/24/20 04:40 04/24/20 04:40 04/24/20 04:31 04/24/20 04:40 - Laboratory Result Diagrams: 04/23/20 22:45 04/23/20 22:45 Laboratory results interpreted by me: 04/23/20 04/23/20 04/24/20 22:45 22:45 01:13 WBC 12.8 H RBC 3.38 L Hgb 6.5 L Hct 21.7 L MCV 64 L MCH 19.3 L MCHC 30.1 L RDW 19.1 H Potassium 3.5 L Urine Blood MODERATE H Crossmatch 04/24/20 01:45 WBC RBC Hgb Hct MCV MCH MCHC RDW Potassium Urine Blood Crossmatch See Detail - Diagnostic Test Radiology reviewed: Reports reviewed Radiology results interpreted by me: 04/24/20 03:02 Chest X-Ray 04/23/20 22:02 IMPRESSION: No acute abnormality as above. copyright 2011 [employer]- All Rights Reserved Transvaginal US 04/23/20 22:03 IMPRESSION: No acute sonographic abnormality is seen within the pelvis. The left ovary is not well visualized. Discharge - Discharge Clinical Impression: Menometrorrhagia, Blood loss anemia Condition: Stable Disposition: HOME, SELF-CARE Instructions: Vaginal Bleeding ([facility]) Additional Instructions: Is toStay well-hydrated. The Provera as it is prescribed. Please follow-up with SURGICAL MANAGER, call for an appointment in the next 1 to 2 weeks. If your bleeding again increases, you develop shortness of breath or dizziness, or you develop any other new or concerning symptoms, please return immediately to the emergency department for further evaluation. Forms: Smoking Cessation Education Referrals: SHAYNE CHÁVEZ MD [Primary Care Provider] - Follow up as needed LOUISE HERNÁNDEZ MD [ACTIVE STAFF] - Follow up as needed
[2020-04-24] MEDS ORDERED: ONDANSETRON HCL INJ/PF 4 MG/2 ML SDV IV ONE (04:25)
[2020-04-24] MEDS ORDERED: MEDROXYPROGESTERONE ACET 10 MG TABLET PO ONE (04:59)
[2020-04-24] MEDS ORDERED: HYDROCODONE/ACETAMINOPHEN 5-325 MG TABLET PO ONE (05:35)
[2020-04-24 07:08] VITALS: BP 111/77
[2020-04-24 12:09] LABS: PATH REVIEW PATHOLOGIST REVIEWED
== END 2020-04-24 07:14 | disposition home or self-care (01) ==
LOC: ER 20:43
DX: N92.1 Excessive and frequent menstruation with irregular cycle (principal); D50.0 Iron deficiency anemia secondary to blood loss (chronic); F17.200 Nicotine dependence, unspecified, uncomplicated; Z88.2 Allergy status to sulfonamides; Z91.040 Latex allergy status
CPT/HCPCS: 99285; 96360; 86900; 86901; 36415; 87086; 36430; 86850; 85025; 81025; 80053; 81001; 80307; 86920; 71045; 76830; P9016; J3490; J2405; J7050